=== PATIENT | male | born 1940 | race Caucasian/White ===

== ENCOUNTER 2022-10-23 19:25 | Inpatient (IN) | payer MEDICARE, MEDICAID, SELFPAY ==
--- NOTE | ~2022-10-23 | XR_ITS ---
EXAMINATION: XR CHEST CLINICAL INFORMATION: Decreased left-sided breath sounds. COMPARISON: None available. TECHNIQUE: Frontal view of the chest was obtained. FINDINGS: Left-sided pacer with leads projecting over the right atrium and right ventricle. No focal airspace opacities, pleural effusion or pneumothorax. No significant cardiomediastinal contour abnormality. No acute osseous findings. The visualized upper abdomen is within normal limits. XR/XR chest 1V IMPRESSION: No acute cardiopulmonary findings.
--- NOTE | ~2022-10-23 | US_ITS ---
EXAMINATION: US VENOUS ULTRASOUND WITH DOPPLER LOWER EXTREMITY, BILATERAL CLINICAL INFORMATION: Pulmonary embolus. Evaluate for deep venous thrombosis COMPARISON: None available. TECHNIQUE: Ultrasound of the deep veins is performed from the hip to the calf with compression sonography and color and pulse Doppler assessment. Spectral analysis with color-flow imaging is performed. FINDINGS: RIGHT: There is normal venous compression and respiratory variation and augmented flow. The visualized common femoral vein, superficial femoral vein, profunda femoral vein, popliteal vein, and the trifurcation region shows no evidence of deep venous thrombosis. There is no significant popliteal fossa cyst. LEFT: There is normal venous compression and respiratory variation and augmented flow. The visualized common femoral vein, superficial femoral vein, profunda femoral vein, popliteal vein, and the trifurcation region shows no evidence of deep venous thrombosis. There is no significant popliteal fossa cyst. The peroneal veins of the left calf were unable to be visualized. If the patient's symptoms persist, followup ultrasound in 5 days 7 days might be of value to exclude proximal propagation from a non-visualized calf vein. US/US venous duplex LE BI IMPRESSION: No DVT demonstrated in the bilateral lower extremity.
--- NOTE | ~2022-10-23 | CT_ITS ---
EXAMINATION: CT HEAD WITHOUT CONTRAST CLINICAL INFORMATION: Encephalopathy. COMPARISON: None available. TECHNIQUE: Contiguous axial imaging was performed from the skull base to vertex without intravenous administration of contrast. This CT examination was performed using dose optimization techniques as appropriate, variously including the following: *Automated exposure control *Adjustment of mA and/or kV according to patient size (this includes techniques or standardized protocols for targeted exams where dose is matched to indication/reason for exam; i.e. extremities or head) *Use of iterative reconstruction technique DLP: 661 mGy-cm FINDINGS: No intracranial hemorrhage, extra-axial surface collection, focal mass effect or midline shift. Moderate parenchymal volume loss with commensurate prominence of ventricles and sulci; no hydrocephalus. Atherosclerotic calcification of vertebral and carotid arteries. Scattered, patchy foci of hypoattenuation within supratentorial white matter compatible with sequela of chronic microangiopathy. There is a small area of chronic encephalomalacia within the right frontal lobe. Otherwise, the gordon-white matter differentiation is maintained. No evidence of an acute major vascular territory infarction. No acute abnormalities within the posterior fossa. The cerebellar tonsils are in normal position. There is likely chronic opacification of a right mastoid air cell. Otherwise, the mastoid air cells are well aerated. Mild mucosal thickening of the left maxillary sinus. No air-fluid levels within the paranasal sinuses. The visualized orbits and temporomandibular joints are intact. There is calcium deposition (likely calcium pyrophosphate dihydrate crystal deposition) along the transverse ligament posterior to the dens. CT/CT head/brain wo IV con IMPRESSION: * No evidence of mass, intracranial hemorrhage or other acute intracranial pathology. 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
--- NOTE | ~2022-10-23 | CT_ITS ---
EXAMINATION: CT ANGIOGRAM OF THE CHEST WITH AND WITHOUT CONTRAST (CT PULMONARY ANGIOGRAM FOR PE) CLINICAL INFORMATION: Hypoxia, syncope. COMPARISON: None available. TECHNIQUE: Prior to contrast administration, noncontrast localization images were obtained. Subsequently, multidetector volumetric imaging was performed from the thoracic inlet to below the diaphragms following the administration of 65 mL Omnipaque 350 intravenous contrast. No contrast reaction reported Sagittal, coronal, and MIP oblique sagittal reformatted images were obtained on the CT workstation, uploaded to PACS, and reviewed. This CT examination was performed using dose optimization techniques as appropriate, variously including the following: *Automated exposure control *Adjustment of mA and/or kV according to patient size (this includes techniques or standardized protocols for targeted exams where dose is matched to indication/reason for exam; i.e. extremities or head) *Use of iterative reconstruction technique Total exam dose-length product 498 mGy-cm FINDINGS: QUALITY OF STUDY/CONTRAST BOLUS: Satisfactory. PULMONARY ARTERIES: Evaluation is somewhat limited due to motion. No central pulmonary emboli. A few very small filling defects in segmental branches of the lower lobes, for instance in the right lung base on image 306 series 7 and left lung base image 258 series 7 could represent pulmonary emboli versus artifacts in the setting of motion. THORACIC AORTA: No aneurysm. LUNG: Platelike opacities in the left upper lobe anterior to the major fissure favoring to represent subsegmental atelectasis. Diffuse bronchial wall thickening with scattered intrabronchial mucous secretions. Background of emphysematous changes. No dense consolidation or significant groundglass disease. Central airways are patent. Evaluation of pulmonary nodules is limited due to respiratory motion. No discrete pulmonary mass. PLEURA: No pleural effusion or pneumothorax. MEDIASTINUM: Normal heart size. No pericardial effusion. No hilar or mediastinal lymphadenopathy. No evidence of septal bowing or right heart strain. CORONARY ARTERY CALCIFICATION: Coronary artery calcifications are noted. Left-sided pacer leads terminate at the level of the right atrium and right ventricle. CHEST WALL/AXILLA: No axillary or internal mammary lymphadenopathy. OSSEOUS STRUCTURES: No acute or suspicious osseous abnormality. UPPER ABDOMEN: Nonspecific periportal and peripancreatic lymphadenopathy, for instance a 1 cm short axis lymph node on image 49 series 5. Reflux of contrast into the hepatic veins suggest elevated right heart pressures. CT/CT angio chest PE protocol IMPRESSION: 1. Evaluation is somewhat limited due to motion. No central pulmonary emboli. There are a few very small filling defects in segmental branches of the lower lobes which could represent pulmonary emboli versus artifacts in the setting of motion. 2. Some degree of reflux of contrast into the hepatic veins is noted that could indicate forceful injection versus increased right-sided heart pressures. 3. Diffuse bronchial wall thickening with scattered intrabronchial mucous secretions suggesting small airways disease. 4. Background of emphysematous changes. 5. Nonspecific periportal and peripancreatic lymphadenopathy. If the patient has high risk factors for malignancy, a short-term follow-up CT abdomen could be obtained for reevaluation. VTE: indeterminate This critical result was discussed with Dr. Lemos at 10/23/2022 11:38 PM and it was ascertained that the content and urgency of the report was understood at the time of direct communication.
--- NOTE | 2022-10-23 19:35 | ECG_ITS ---
Test Reason : weakness Blood Pressure : / mmHG Vent. Rate : 085 BPM Atrial Rate : 085 BPM P-R Int : 000 ms QRS Dur : 166 ms QT Int : 440 ms P-R-T Axes : 044 066 094 degrees QTc Int : 523 ms Possible Normal sinus rhythm Ventricular-paced rhythm Abnormal ECG No previous ECGs available Referred By: Javy Ferrari Electronically Signed By:MAGUI OZUNA MD
[2022-10-23 19:42] VITALS: BP 118/62; PULSE 94; O2SAT 96; BMI 30.3
[2022-10-23 19:45] VITALS: BP 125/54; PULSE 85; RESP 24; TEMP 36.6; O2SAT 96
--- NOTE | 2022-10-23 19:45 | ED.GENADULT ---
HPI - General Adult General Chief complaint: Dyspnea Stated complaint: Dyspnea and unresponsiveness prior to ems Time Seen by Provider: 10/23/22 19:29 Source: EMS Mode of arrival: EMS Limitations: other (Confused) History of Present Illness HPI narrative: Patient comes to the emergency room via EMS from assisted living. Patient was found unresponsive in his bed, in respiratory failure. Patient did have pulse. According to the staff, they reported to EMS that the patient was severely cyanotic, profusely diaphoretic. They started him on 6 L nasal cannula, oxygen saturation improved to high 80s. When EMS arrived the patient was awake, confused, oxygen saturation in the low 80s. They took the oxygen off and the patient O2 dropped to low 70s. On arrival to the emergency room, patient is awake, states that he feels okay, denies chest pain or shortness of breath. Patient seems lethargic. Related Data Allergies Allergy/AdvReac Type Severity Reaction Status Date / Time Unable to Assess Allergy Unverified 10/23/22 19:35 Review of Systems Review of Systems: Denies chest pain or shortness of breath. Yes Unobtainable due to mental condition COUNT INCLUDES THE [facility] Past Medical History Medical History Alcohol dependence in remission Aortic valve stenosis Atrial fibrillation Chronic kidney disease CVA (cerebral vascular accident) Dementia Depression Hypertension Pulmonary hypertension Social History Social History Advance Directives: Yes Advance Directives on File: Yes Advance Directives Date on File: 10/23/22 Physical Exam ED Vital Signs: Vital Signs - 24 hr 10/23/22 19:45 10/23/22 21:56 10/23/22 23:37 Temperature 97.9 F 98.0 F 98.0 F Pulse Rate 85 62 68 Respiratory Rate 24 H 20 16 Blood Pressure 125/54 L 106/53 L 116/71 Pulse Oximetry 96 96 94 Oxygen Delivery Method Nasal Cannula Nasal Cannula Nasal Cannula Oxygen Flow Rate 5 5 5 BMI result Body Mass Index 30.3 Const Other: Appearance: Alert. Oriented X3. No acute distress. Somnolent, easily arousable Eyes: Pupils equal, round and reactive to light. ENT: Pharynx normal. Neck: Normal inspection. Neck supple. No lymph nodes noted. No crepitus CVS: Normal heart rate and rhythm. Pulses normal. Normal S1 and S2 Respiratory: Decreased breath sounds bilateral Abdomen: Soft and nontender. No rigidity. No distention. Skin: Skin warm and dry. Normal skin color. Normal skin turgor. Extremities: No lower extremity edema. No Lacerations. No Rash Neuro: No motor deficit. No sensory deficit. Moving all extremities. No slurred speech. CN 2 through 12 grossly intact Psych: calm, cooperative, normal affect Course Course Course Narrative: -all patient's labs and imaging pending. -the oxygen, 2 drops to the low 80s. Patient is now on 4 L saturating in the low 90s. -patient does not seem to have any history of asthma or COPD. Medications Administered Discontinued Medications Generic Name Dose Route Start Last Admin Trade Name Freq PRN Reason Stop Dose Admin Iohexol 100 ml 10/23/22 21:23 10/23/22 21:24 Iohexol 350 Mg/Ml 100 Ml Infus..Btl IV 10/23/22 21:24 65 ml ONCE ONE Administration Medical Decision Making Medical Decision Making [facility] Narrative: -patient's labs are unremarkable. D-dimer negative. -although patient's D-dimer is negative, I cannot account for why patient is hypoxic and has syncopal episode. We will go ahead and order a CTA scan to rule pulmonary embolus -CTA is unremarkable, possible defects in segmental branches of the lower lobes favors artifact. Given the patient's level of hypoxia and syncopal episode, we will go ahead and treat as a pulmonary embolism -Lovenox has been started -patient is on 5 L nasal cannula, without O2, oxygen saturation drops to the high 70s. 5 L, patient has been calm, comfortable. Differential Diagnosis Differential Diagnoses: The differential diagnosis associated with the presentation includes (Pneumonia, pneumothorax, pulmonary embolism) Admission/Observation Consideration of admission/observation: Escalation of care including admission/observation considered Consult Healthcare Provider Management of the patient was discussed with: Hospitalist Lab Data [facility] Lab Attestation statement: I reviewed the patient's lab results. 10/23/22 20:10 10/23/22 20:10 Labs: Lab Results 10/23/22 10/23/22 10/23/22 Range/Units 20:10 20:10 20:10 WBC 8.0 (4.8-10.8) X10*3/uL RBC 5.17 (4.60-5.80) X10*6/uL Hgb 14.5 (14.0-18.0) g/dl Hct 46.2 (42.0-52.0) % MCV 89.4 (80.0-98.0) fL MCH 28.0 (27.0-33.0) pg MCHC 31.4 (31.0-36.0) g/dl RDW 13.5 (11.0-16.0) % Plt Count 229 (160-400) X10*3/uL MPV 9.4 (9.4-12.4) fL Immature Gran % (Auto) 0.2 (0.0-0.4) % Neut % (Auto) 70.1 (45-73) % Lymph % (Auto) 15.7 L (20-40) % [place] % (Auto) 10.2 (2-11) % Eos % (Auto) 3.6 (0-4) % Baso % (Auto) 0.2 (0-2) % Lymph # (Auto) 1.3 (1.2-4.9) X10*3/uL [place] # (Auto) 0.8 (0.1-1.2) X10*3/uL Eos # (Auto) 0.3 (0.0-0.4) X10*3/uL Baso # (Auto) 0.0 (0.0-0.2) X10*3/uL Abs Immat Gran (auto) 0.02 (0.00-0.03) X10*3/uL Absolute Neuts (auto) 5.6 (2.0-8.3) x10*3/uL Absolute Nucleated RBC 0.000 (0.0-0.012) X10*3/uL Nucleated RBC % (auto) 0.0 (0.0-0.2) /100WBC PT (10.0-13.1) SEC INR (0.9-1.1) D-Dimer High Sensitivty NG/ML VBG pH (7.32-7.43) VBG pCO2 mmHg VBG pO2 mmHg VBG HCO3 (22-26) mmol/L VBG O2 Saturation % VBG Base Excess mmol/L Sodium 140 (135-145) mmol/L Potassium 3.8 (3.3-5.1) mmol/L Chloride 103 (96-108) mmol/L Carbon Dioxide 26 (22-29) mmol/L Anion Gap 15 (12-20) BUN 23 H (9-16) mg/dL Creatinine 0.83 (0.5-1.4) mg/dL Estim Creat Clear Calc 49.1 Estimated GFR > 60 Random Glucose 141 H (60-115) mg/dL Lactic Acid (0.5-2.0) mmol/L Calcium 9.1 (8.4-10.2) mg/dL Magnesium 2.2 (1.6-2.6) mg/dL Total Bilirubin 1.8 H (0.0-1.0) mg/dL Direct Bilirubin 0.4 (0.0-0.5) mg/dL AST 20 (5-37) U/L ALT 16 (0-40) U/L Alkaline Phosphatase 91 (39-117) U/L Troponin I High Sens 19.2 (<3.5-35.0) ng/L B-Natriuretic Peptide (<100) pg/mL Total Protein 6.8 (6.5-8.0) g/dL Albumin 3.6 (3.5-5.0) g/dL Lipase 16 (8-78) U/L COVID-19 (RACHEL) (Negative) COVID-19 Clin Com Influenza Type A (JUWAN) (Negative) Influenza Type B (JUWAN) (Negative) Influenza A & B Note 10/23/22 10/23/22 10/23/22 Range/Units 20:10 20:10 20:10 WBC (4.8-10.8) X10*3/uL RBC (4.60-5.80) X10*6/uL Hgb (14.0-18.0) g/dl Hct (42.0-52.0) % MCV (80.0-98.0) fL MCH (27.0-33.0) pg MCHC (31.0-36.0) g/dl RDW (11.0-16.0) % Plt Count (160-400) X10*3/uL MPV (9.4-12.4) fL Immature Gran % (Auto) (0.0-0.4) % Neut % (Auto) (45-73) % Lymph % (Auto) (20-40) % [place] % (Auto) (2-11) % Eos % (Auto) (0-4) % Baso % (Auto) (0-2) % Lymph # (Auto) (1.2-4.9) X10*3/uL [place] # (Auto) (0.1-1.2) X10*3/uL Eos # (Auto) (0.0-0.4) X10*3/uL Baso # (Auto) (0.0-0.2) X10*3/uL Abs Immat Gran (auto) (0.00-0.03) X10*3/uL Absolute Neuts (auto) (2.0-8.3) x10*3/uL Absolute Nucleated RBC (0.0-0.012) X10*3/uL Nucleated RBC % (auto) (0.0-0.2) /100WBC PT 17.0 H (10.0-13.1) SEC INR 1.5 H (0.9-1.1) D-Dimer High Sensitivty 161 NG/ML VBG pH (7.32-7.43) VBG pCO2 mmHg VBG pO2 mmHg VBG HCO3 (22-26) mmol/L VBG O2 Saturation % VBG Base Excess mmol/L Sodium (135-145) mmol/L Potassium (3.3-5.1) mmol/L Chloride (96-108) mmol/L Carbon Dioxide (22-29) mmol/L Anion Gap (12-20) BUN (9-16) mg/dL Creatinine (0.5-1.4) mg/dL Estim Creat Clear Calc Estimated GFR Random Glucose (60-115) mg/dL Lactic Acid 1.9 (0.5-2.0) mmol/L Calcium (8.4-10.2) mg/dL Magnesium (1.6-2.6) mg/dL Total Bilirubin (0.0-1.0) mg/dL Direct Bilirubin (0.0-0.5) mg/dL AST (5-37) U/L ALT (0-40) U/L Alkaline Phosphatase (39-117) U/L Troponin I High Sens (<3.5-35.0) ng/L B-Natriuretic Peptide 237 H (<100) pg/mL Total Protein (6.5-8.0) g/dL Albumin (3.5-5.0) g/dL Lipase (8-78) U/L COVID-19 (RACHEL) (Negative) COVID-19 Clin Com Influenza Type A (JUWAN) (Negative) Influenza Type B (JUWAN) (Negative) Influenza A & B Note 10/23/22 10/23/22 10/23/22 Range/Units 20:14 20:27 20:27 WBC (4.8-10.8) X10*3/uL RBC (4.60-5.80) X10*6/uL Hgb (14.0-18.0) g/dl Hct (42.0-52.0) % MCV (80.0-98.0) fL MCH (27.0-33.0) pg MCHC (31.0-36.0) g/dl RDW (11.0-16.0) % Plt Count (160-400) X10*3/uL MPV (9.4-12.4) fL Immature Gran % (Auto) (0.0-0.4) % Neut % (Auto) (45-73) % Lymph % (Auto) (20-40) % [place] % (Auto) (2-11) % Eos % (Auto) (0-4) % Baso % (Auto) (0-2) % Lymph # (Auto) (1.2-4.9) X10*3/uL [place] # (Auto) (0.1-1.2) X10*3/uL Eos # (Auto) (0.0-0.4) X10*3/uL Baso # (Auto) (0.0-0.2) X10*3/uL Abs Immat Gran (auto) (0.00-0.03) X10*3/uL Absolute Neuts (auto) (2.0-8.3) x10*3/uL Absolute Nucleated RBC (0.0-0.012) X10*3/uL Nucleated RBC % (auto) (0.0-0.2) /100WBC PT (10.0-13.1) SEC INR (0.9-1.1) D-Dimer High Sensitivty NG/ML VBG pH 7.36 (7.32-7.43) VBG pCO2 55 mmHg VBG pO2 52 mmHg VBG HCO3 32 H (22-26) mmol/L VBG O2 Saturation 76.0 % VBG Base Excess 4.9 mmol/L Sodium (135-145) mmol/L Potassium (3.3-5.1) mmol/L Chloride (96-108) mmol/L Carbon Dioxide (22-29) mmol/L Anion Gap (12-20) BUN (9-16) mg/dL Creatinine (0.5-1.4) mg/dL Estim Creat Clear Calc Estimated GFR Random Glucose (60-115) mg/dL Lactic Acid (0.5-2.0) mmol/L Calcium (8.4-10.2) mg/dL Magnesium (1.6-2.6) mg/dL Total Bilirubin (0.0-1.0) mg/dL Direct Bilirubin (0.0-0.5) mg/dL AST (5-37) U/L ALT (0-40) U/L Alkaline Phosphatase (39-117) U/L Troponin I High Sens (<3.5-35.0) ng/L B-Natriuretic Peptide (<100) pg/mL Total Protein (6.5-8.0) g/dL Albumin (3.5-5.0) g/dL Lipase (8-78) U/L COVID-19 (RACHEL) Negative (Negative) COVID-19 Clin Com See Note Influenza Type A (JUWAN) Negative (Negative) Influenza Type B (JUWAN) Negative (Negative) Influenza A & B Note See Note Independent Interpretation I performed an independent interpretation of an: CT Scan (Interpretation of CTA scan of the chest: No obvious pulmonary embolism, questionable subsegmental PE?) Radiology Impression Discussion of test interpretation with radiology: I have reviewed the radiologist's reading. Radiologist Impression: MPRESSION: 1.? Evaluation is somewhat limited due to motion. No central pulmonary emboli. There are a few very small filling defects in segmental branches of the lower lobes which could represent pulmonary emboli versus artifacts in the setting of motion. 2.? Some degree of reflux of contrast into the hepatic veins is noted that could indicate forceful injection versus increased right-sided heart pressures. 3.? Diffuse bronchial wall thickening with scattered intrabronchial mucous secretions suggesting small airways disease. 4.? Background of emphysematous changes. 5.? Nonspecific periportal and peripancreatic lymphadenopathy. If the patient has high risk factors for malignancy, a short-term follow-up CT abdomen could be obtained for reevaluation. ? VTE: indeterminate Critical Care Time Critical Care Time Critical Care Time: Yes Total Critical Care Time: 75 Attestation: I have personally provided critical care time. Time includes review of lab data, radiology results, discussion with consultants, and monitoring for potential decompensation. Intervention performed as documented. Discharge Plan Discharge Clinical Impression: Pulmonary embolism, Syncope Patient Disposition: Admitted As Inpatient
[2022-10-23 20:21] LABS: VBG Base Excess 4.9 mmol/L; VBG HCO3 32 mmol/L (22-26); VBG pCO2 55 mmHg; VBG pH 7.36 (7.32-7.43); VBG pO2 52 mmHg
[2022-10-23 20:22] LABS: MANUAL DIFF FLAG NO
[2022-10-23 20:23] LABS: Venous Blood Gas Refer to POC result
[2022-10-23 20:30] LABS: Basophils Percent Auto 0.2 % (0-2); Eosinophils Absolute Auto 0.3 X10*3/uL (0.0-0.4); Eosinophils Percent Auto 3.6 % (0-4); Hematocrit 46.2 % (42.0-52.0); Hemoglobin 14.5 g/dl (14.0-18.0); Imm Gran Abs Auto 0.02 X10*3/uL (0.00-0.03); Imm Gran Pct Auto 0.2 % (0.0-0.4); Lymphocytes Absolute Auto 1.3 X10*3/uL (1.2-4.9); Lymphocytes Percent Auto 15.7 % (20-40); Mean Corpuscular HGB Conc 31.4 g/dl (31.0-36.0); Mean Corpuscular Volume 89.4 fL (80.0-98.0); Mean Platelet Volume 9.4 fL (9.4-12.4); Monocytes Absolute Auto 0.8 X10*3/uL (0.1-1.2); Monocytes Percent Auto 10.2 % (2-11); Neutrophils Absolute Auto 5.6 x10*3/uL (2.0-8.3); Neutrophils Percent Auto 70.1 % (45-73); Platelet Count 229 X10*3/uL (160-400); Red Blood Count 5.17 X10*6/uL (4.60-5.80); Red Cell Distribution Width 13.5 % (11.0-16.0)
[2022-10-23 20:31] LABS: INTERNATIONAL NORM RATIO 1.5 (0.9-1.1)
[2022-10-23 20:33] LABS: D Dimer High Sensitivity 161 NG/ML; Lactic Acid 1.9 mmol/L (0.5-2.0)
[2022-10-23 20:41] LABS: Alanine Aminotransferase 16 U/L (0-40); Albumin Level 3.6 g/dL (3.5-5.0); Alkaline Phosphatase 91 U/L (39-117); Anion Gap 15 (12-20); Aspartate Amino Transferase 20 U/L (5-37); Bilirubin Direct 0.4 mg/dL (0.0-0.5); Bilirubin Total 1.8 mg/dL (0.0-1.0); Blood Urea Nitrogen 23 mg/dL (9-16); Calcium 9.1 mg/dL (8.4-10.2); Carbon Dioxide 26 mmol/L (22-29); Chloride 103 mmol/L (96-108); Creatinine Clr Calc Pharmacy 49.1; Estimated Glomerular Filt Rate > 60; Glucose Random 141 mg/dL (60-115); Lipase 16 U/L (8-78); Magnesium 2.2 mg/dL (1.6-2.6); Potassium 3.8 mmol/L (3.3-5.1); Sodium 140 mmol/L (135-145); Total Protein 6.8 g/dL (6.5-8.0)
[2022-10-23 20:43] LABS: B Type Natriuretic Peptide 237 pg/mL (<100)
[2022-10-23 20:45] LABS: Troponin-I High Sensitivity 19.2 ng/L (<3.5-35.0)
[2022-10-23 21:01] LABS: COVID-19 Test Negative (Negative); IDNOW Serial# 08D9AD1C; IDNOW Serial# BCCEAD1C; Influenza A Negative (Negative); Influenza B2 Negative (Negative)
[2022-10-23] MEDS: iohexoL 350 MG/ML 100 ML INFUS..BTL IV (21:24)
[2022-10-23 21:56] VITALS: BP 106/53; PULSE 62; RESP 20; TEMP 36.7; O2SAT 96
[2022-10-23 23:37] VITALS: BP 116/71; PULSE 68; RESP 16; TEMP 36.7; O2SAT 94
--- NOTE | 2022-10-23 23:40 | MHC.EDTECH ---
i took over this assignment vitals were taken and a [place] cath was applied
--- NOTE | 2022-10-23 23:43 | PM.IMHP ---
History of Present Illness Date of Service: 10/23/22 Chief Complaint: unresponsive, hypoxic patient is lethargic , arousable, but somnolent and unable to get much history, therefore history is obtained mostly from EMR this is an 82-year-old male with past medical history of aortic valve stenosis, AFib, CVA, depression, pulmonary hypertension, who was a resident of longterm, was sent to the ED after being found unresponsive. Patient apparently had a pulse. But was found to be severely cyanotic, profusely diaphoretic, with an O2 sat on arrival of EMS in the 80s. According to EMS report, patient was on 6 L of nasal cannula satting in the high 80s, when oxygen was removed from the patient he was found to be satting in the 70s. On arrival to the ED patient hemodynamically stable, and denies any chest pain to the ED, otherwise no other review of system can be obtained Vitals on arrival stable, shows respiratory rate of 24, Satting 96% on 5 L of oxygen WBC count of eight, INR of 1.5, BNP of 237, troponin of 19, COVID-19, influenza, negative chest CT angiogram shows no central pulmonary emboli, but small filling defects in segmental branches concerning for segmental emboli given significant hypoxia, patient will be admitted for further management Review of Systems Review of Systems: Yes Unobtainable due to mental condition and Unobtainable due to mental status [facility] Medical History Alcohol dependence in remission Aortic valve stenosis Atrial fibrillation Chronic kidney disease CVA (cerebral vascular accident) Dementia Depression Hypertension Pulmonary hypertension Social History Advance Directives: Yes Advance Directives on File: Yes Advance Directives Date on File: 10/23/22 Meds Allergies Allergy/AdvReac Type Severity Reaction Status Date / Time Unable to Assess Allergy Unverified 10/23/22 19:35 Home Medications Medication Instructions Recorded Confirmed Last Taken Type acetaminophen 325 mg tablet 650 mg PO Q6H PRN Abdominal 10/23/22 10/23/22 Unknown History Discomfort apixaban 5 mg tablet (Eliquis) 5 mg PO BID 10/23/22 10/23/22 Unknown History atorvastatin 40 mg tablet 40 mg PO DAILY 10/23/22 10/23/22 Unknown History bisacodyl 10 mg rectal suppository 10 mg MO 10/23/22 Unknown History famotidine 20 mg tablet 20 mg PO DAILY 10/23/22 10/23/22 Unknown History furosemide 20 mg tablet 20 mg PO BID 10/23/22 10/23/22 Unknown History guaifenesin 100 mg/5 mL oral syrup 200 mg PO Q4H PRN Cough 10/23/22 10/23/22 Unknown History loperamide 2 mg capsule 2 mg PO Q4H PRN Allergic Reaction 10/23/22 10/23/22 Unknown History magnesium hydroxide 400 mg/5 mL 400 PO NEEDED 10/23/22 Unknown History oral suspension (Milk of Magnesia) metoprolol tartrate 50 mg tablet BID 10/23/22 Unknown History sacubitril 24 mg-valsartan 26 mg 1 tab PO BID 10/23/22 10/23/22 Unknown History tablet (Entresto) simethicone 80 mg chewable tablet 80 mg 10/23/22 Unknown History Physical Exam Vital Signs and Narrative: Vital Signs: Last Vital Signs Temp 98.0 F 10/23/22 23:37 Pulse 68 10/23/22 23:37 Resp 16 10/23/22 23:37 BP 116/71 10/23/22 23:37 Pulse Ox 94 10/23/22 23:37 O2 Del Method Nasal Cannula 10/23/22 23:37 O2 Flow Rate 5 10/23/22 23:37 BMI result Body Mass Index 30.3 Const: Other: sleeping, lethargic, arousable, unable to assess orientation General: no acute distress Eyes: General: appearance normal, both eyes and all related structures Pupils: Equal, round and reactive pupils present Resp: Effort & Inspection: normal respiratory effort Auscultation: clear to auscultation bilaterally Cardio: Rate: regular rate Rhythm: regular rhythm GI: Palpation (GI): Soft to palpation Auscultation: normal bowel sounds Skin: General skin exam: no rashes or lesions noted Neuro: Cranial nerves: Yes Equal, round and reactive pupils present Extrem: General: Yes normal to inspection and Yes no pedal edema Results Labs 10/23/22 20:10 10/23/22 20:10 Labs: Laboratory Results - last 24 hr 10/23/22 10/23/22 10/23/22 20:10 20:10 20:10 MCV 89.4 MCH 28.0 MCHC 31.4 RDW 13.5 Plt Count 229 MPV 9.4 Immature Gran % (Auto) 0.2 Neut % (Auto) 70.1 Lymph % (Auto) 15.7 L [place] % (Auto) 10.2 Eos % (Auto) 3.6 Baso % (Auto) 0.2 Lymph # (Auto) 1.3 [place] # (Auto) 0.8 Eos # (Auto) 0.3 Baso # (Auto) 0.0 Abs Immat Gran (auto) 0.02 Absolute Neuts (auto) 5.6 Absolute Nucleated RBC 0.000 Nucleated RBC % (auto) 0.0 PT INR D-Dimer High Sensitivty VBG pH VBG pCO2 VBG pO2 VBG HCO3 VBG O2 Saturation VBG Base Excess Anion Gap 15 Estim Creat Clear Calc 49.1 Estimated GFR > 60 Random Glucose 141 H Lactic Acid Calcium 9.1 Magnesium 2.2 Total Bilirubin 1.8 H Direct Bilirubin 0.4 AST 20 ALT 16 Alkaline Phosphatase 91 Troponin I High Sens 19.2 B-Natriuretic Peptide Total Protein 6.8 Albumin 3.6 Lipase 16 COVID-19 (RACHEL) COVID-19 Clin Com Influenza Type A (JUWAN) Influenza Type B (JUWAN) Influenza A & B Note 10/23/22 10/23/22 10/23/22 20:10 20:10 20:10 MCV MCH MCHC RDW Plt Count MPV Immature Gran % (Auto) Neut % (Auto) Lymph % (Auto) [place] % (Auto) Eos % (Auto) Baso % (Auto) Lymph # (Auto) [place] # (Auto) Eos # (Auto) Baso # (Auto) Abs Immat Gran (auto) Absolute Neuts (auto) Absolute Nucleated RBC Nucleated RBC % (auto) PT 17.0 H INR 1.5 H D-Dimer High Sensitivty 161 VBG pH VBG pCO2 VBG pO2 VBG HCO3 VBG O2 Saturation VBG Base Excess Anion Gap Estim Creat Clear Calc Estimated GFR Random Glucose Lactic Acid 1.9 Calcium Magnesium Total Bilirubin Direct Bilirubin AST ALT Alkaline Phosphatase Troponin I High Sens B-Natriuretic Peptide 237 H Total Protein Albumin Lipase COVID-19 (RACHEL) COVID-19 Clin Com Influenza Type A (JUWAN) Influenza Type B (JUWAN) Influenza A & B Note 10/23/22 10/23/22 10/23/22 20:14 20:27 20:27 MCV MCH MCHC RDW Plt Count MPV Immature Gran % (Auto) Neut % (Auto) Lymph % (Auto) [place] % (Auto) Eos % (Auto) Baso % (Auto) Lymph # (Auto) [place] # (Auto) Eos # (Auto) Baso # (Auto) Abs Immat Gran (auto) Absolute Neuts (auto) Absolute Nucleated RBC Nucleated RBC % (auto) PT INR D-Dimer High Sensitivty VBG pH 7.36 VBG pCO2 55 VBG pO2 52 VBG HCO3 32 H VBG O2 Saturation 76.0 VBG Base Excess 4.9 Anion Gap Estim Creat Clear Calc Estimated GFR Random Glucose Lactic Acid Calcium Magnesium Total Bilirubin Direct Bilirubin AST ALT Alkaline Phosphatase Troponin I High Sens B-Natriuretic Peptide Total Protein Albumin Lipase COVID-19 (RACHEL) Negative COVID-19 Clin Com See Note Influenza Type A (JUWAN) Negative Influenza Type B (JUWAN) Negative Influenza A & B Note See Note Imaging Radiologist's Impressions: Impressions Chest X-Ray 10/23/22 19:54 IMPRESSION: No acute cardiopulmonary findings. Chest CTA 10/23/22 21:46 IMPRESSION: 1. Evaluation is somewhat limited due to motion. No central pulmonary emboli. There are a few very small filling defects in segmental branches of the lower lobes which could represent pulmonary emboli versus artifacts in the setting of motion. 2. Some degree of reflux of contrast into the hepatic veins is noted that could indicate forceful injection versus increased right-sided heart pressures. 3. Diffuse bronchial wall thickening with scattered intrabronchial mucous secretions suggesting small airways disease. 4. Background of emphysematous changes. 5. Nonspecific periportal and peripancreatic lymphadenopathy. If the patient has high risk factors for malignancy, a short-term follow-up CT abdomen could be obtained for reevaluation. VTE: indeterminate This critical result was discussed with Dr. Lemos at 10/23/2022 11:38 PM and it was ascertained that the content and urgency of the report was understood at the time of direct communication. Assessment and Plan (1) Pulmonary embolism: Status: Acute (2) Unresponsiveness: Status: Acute (3) Acute respiratory failure with hypoxia: Status: Acute Plan 82-year-old male who presents to the hospital from longterm after being found unresponsive and cyanotic for an unknown period of time # acute hypoxic respiratory failure - likely secondary to PE, pneumonia less likely, COPD less likely - patient on Eliquis at home - given significant hypoxia, patient was started on subcu weight based Lovenox b.i.d. - continue oxygen supplement as required - monitor respiratory status # acute PE - failed Eliquis? - patient was on Eliquis per home medication list history of AFib, - given significant hypoxia patient started on Lovenox weight based - will obtain DVT studies - if positive consider vascular surgery Marizol consult for possible IVC filter? - evidence of possible right heart strain, will obtain echocardiogram - monitor respiratory status # unresponsiveness/encephalopathy - likely secondary to hypoxia - will obtain head CT # AFib -patient was on Eliquis, but has not developed PE, will start him on Lovenox weight based - continue metoprolol # history of CVA - continue statin DVT prophylaxis: Lovenox Time Spent With Patient Time: Total time managing care of this patient today ____ minutes. Quality Stroke Does the patient have a stroke diagnosis?: No VTE Prior VTE?: No VTE Risk Level:: Medical - moderate - high VTE Device Contraindication: Treatment Not Indicated VTE Drug Contraindication: N/A - Med Ordered
[2022-10-24] MEDS: Enoxaparin Sodium 60 MG/0.6 ML SYRINGE SUBCUT ×3 (00:48→23:55)
[2022-10-24] MEDS: 0.9 % Sodium Chloride Flush 3 ML SYRINGE IVFLUSH ×4 (00:48→23:56)
[2022-10-24 00:49] LABS: Partial Thromboplastin Time 27.3 SEC (26.0-36.4)
[2022-10-24 01:58] VITALS: BP 97/58; PULSE 79; RESP 22; TEMP 36.6; O2SAT 96
[2022-10-24 06:54] LABS: Alanine Aminotransferase 13 U/L (0-40); Albumin Level 3.5 g/dL (3.5-5.0); Alkaline Phosphatase 89 U/L (39-117); Anion Gap 13 (12-20); Aspartate Amino Transferase 18 U/L (5-37); Bilirubin Total 1.6 mg/dL (0.0-1.0); Blood Urea Nitrogen 20 mg/dL (9-16); Calcium 8.9 mg/dL (8.4-10.2); Carbon Dioxide 28 mmol/L (22-29); Chloride 106 mmol/L (96-108); Creatinine Clr Calc Pharmacy 50.3; Estimated Glomerular Filt Rate > 60; Glucose Random 105 mg/dL (60-115); Potassium 4.2 mmol/L (3.3-5.1); Sodium 143 mmol/L (135-145); Total Protein 6.5 g/dL (6.5-8.0)
--- NOTE | 2022-10-24 07:00 | CA_ITS ---
Transthoracic Echocardiogram Patient (Last, First, Middle): David Craft, Gender: Male Date of : 1940 Age: 82 Procedure Date: 10/24/2022 Procedure Type: Transthoracic Echocardiogram [place] [facility] [place]: 149.86 cm Weight: 86.18 kg BSA: 1.80 m2 Heart Rate: bpm BP: 118 / 51 mmHg Abe Teacher: Referring MD: Rizwana Purvis MD Puppy Walker: Misha Dorado MD Symptoms: PE Study Quality: Technically Difficult ECG Rhythm: Atrial Fibrillation Conclusions: - 1. Technically limited study despite use of contrast agent 2. Moderate to severe LV systolic dysfunction with LVEF of 30 35% with mild LVH 3. Aortic valve not well visualized, presence of aortic stenosis all the severity is difficult to assess given limited quality of study 4. Normal RV systolic pressure Findings Procedure Information Contrast agent, definity, is being given per protocol without apparent complications. Left Ventricle The left ventricle was not well visualized. Normal left ventricular cavity size. There is mildly increased left ventricular wall thickness. The left ventricular systolic function is moderate to severely decreased. The visually estimated ejection fraction is between 30-35%. Diastolic function is indeterminate on the basis of available data. Right Ventricle Normal right ventricular cavity size. Atria The left atrium was not well visualized. Interatrial shunt cannot be excluded. The right atrium was not well visualized. Aortic Valve The aortic valve was not well visualized. There is no aortic valve regurgitation. Severity of aortic stenosis is difficult to assess on this study Mitral Valve The mitral valve was not well visualized. There is no mitral valve regurgitation. There is no mitral valve stenosis. Pulmonic Valve The pulmonic valve was not well visualized. Tricuspid Valve The tricuspid valve was not well visualized. The right ventricular systolic pressure is normal. The right ventricular systolic pressure is 17 mmHg. There is no evidence of pulmonary hypertension. Great Vessels The aorta was not well visualized. The pulmonary artery was not well visualized. Venous The inferior vena cava is normal in size and collapses greater than 50% with inspiration. Pericardium/Pleural The pericardium was not well visualized. Prior Study Comparison No prior study available for comparison. Measurements 2D Linear Measurements IVSd: 1.35 0.6-0.9/0.6-1.0 cm LVIDd: 4.78 3.9-5.3/4.2-5.9 cm LVIDd Index: 2.66 2.4-3.2/2.2-3.1 cm/m2 LVIDs: 2.98 2.0-3.6 cm LVPWd: 1.33 0.7-1.1 cm LA Diam: 3.90 2.7-3.8/3.0-4.0 cm LAIDs Index: 2.17 1.5-2.3 cm/m2 LV Mass: 318.18 67-162/88-224 g LV Mass Index: 176.77 43-95/49-115 g/m2 LVOT Diam: 2.00 3.0+(-)1.3 cm 2D Systolic Function EF 4C: 40.40 >55% EF 2C: 24.60 >55% EF BiP: 33.60 >55% Mitral Valve MV Pk E: 0.98 MV Decel Time: 130.00 E'Lateral: 4.24 E'Medial: 7.51 E/E' Med: 13.00 E/E' Lat: 23.00 PHT: 38.00 MVA PHT: 5.79 Decel Haakon: 7.52 Aortic Valve AoV Pk Jorge: 2.04 AoV Mn Jorge: 1.47 AoV VTI: 0.42 AoV Pk Grad: 17.00 Aov Mn Grad: 11.00 MAINOR Cont.VTI: 1.02 LVOT LVOT Pk Jorge: 0.65 LVOT Mn Jorge: 0.45 LVOT VTI: 0.14 LVOT Pk Grad: 2.00 LVOT Mn Grad: 1.00 LVOT Diam: 2.00 LVOT Area: 3.14 Diastolic Function MV Pk E: 0.98 E'Medial: 7.51 E/E' Med: 13.00 E' Laterial: 4.24 E/E' Lat: 23.00 Tricuspid Valve TR Pk Jorge: 2.09 TR Pk Grad: 17.00 RVSP: 17.00 Great Vessels Aorta Sinus of Valsalva: 3.10 2.0-3.5 cm Pulmonary Valve PV Pk Jorge: 1.29 Peak PV Grad: 7.00 Updated in Other Vendor System with Status of Final Misha Dorado MD electronically signed on 10/24/2022 1:27:49 PM with status of Final
[2022-10-24 07:03] VITALS: BP 118/51; PULSE 74; RESP 20; O2SAT 94
--- NOTE | 2022-10-24 10:44 | PHA.MEDREC ---
Pharmacy Consult ? Medication Reconciliation Medication list obtain from Facility Pharmacy has completed the medication reconciliation.
--- NOTE | 2022-10-24 10:48 | HO.PM.IMPN ---
Subjective Subjective Date of Service: 10/24/22 Interval History: f/u on acute hypoxic respiratory failure d/t PE Inteval history: Still hypxix, no confusion Physical Exam Vital Signs: Vital Signs: Last Vital Signs Temp 97.9 F 10/24/22 01:58 Pulse 74 10/24/22 07:03 Resp 20 10/24/22 07:03 BP 118/51 L 10/24/22 07:03 Pulse Ox 94 10/24/22 07:03 O2 Del Method Nasal Cannula 10/24/22 07:03 O2 Flow Rate 7 10/24/22 07:03 BMI result Body Mass Index 30.3 Const: Other: General: AO X 3, no acute distress Resp: CTA bilateral CVS: S1,S2,RRR GI: +BS, NT, no distention Skin: No rash Neuro: motor grossly intact Psych: appropriate affect Objective Data Active Medications Acetaminophen (Acetaminophen 325 Mg Tablet) 650 mg PO Q6H PRN PRN Reason: Pain, Mild (Pain Scale 1-3) Docusate Sodium (Docusate Sodium 100 Mg Capsule) 100 mg PO DAILY PRN PRN Reason: Constipation Ondansetron HCl (Ondansetron Hcl 4 Mg/2 Ml Vial) 4 mg IVPUSH Q8H PRN PRN Reason: Nausea and Vomiting Sodium Chloride (0.9 % Sodium Chloride Flush 3 Ml Syringe) [facility] Last Admin: 10/24/22 07:49 Dose: 3 ml Documented By: JESUS ALBERTO Labs 10/23/22 20:10 10/24/22 06:12 Labs: Laboratory Results - last 24 hr 10/23/22 10/23/22 10/23/22 20:10 20:10 20:10 MCV 89.4 MCH 28.0 MCHC 31.4 RDW 13.5 Plt Count 229 MPV 9.4 Immature Gran % (Auto) 0.2 Neut % (Auto) 70.1 Lymph % (Auto) 15.7 L [place] % (Auto) 10.2 Eos % (Auto) 3.6 Baso % (Auto) 0.2 Lymph # (Auto) 1.3 [place] # (Auto) 0.8 Eos # (Auto) 0.3 Baso # (Auto) 0.0 Abs Immat Gran (auto) 0.02 Absolute Neuts (auto) 5.6 Absolute Nucleated RBC 0.000 Nucleated RBC % (auto) 0.0 PT INR APTT D-Dimer High Sensitivty VBG pH VBG pCO2 VBG pO2 VBG HCO3 VBG O2 Saturation VBG Base Excess Anion Gap 15 Estim Creat Clear Calc 49.1 Estimated GFR > 60 Random Glucose 141 H Lactic Acid Calcium 9.1 Magnesium 2.2 Total Bilirubin 1.8 H Direct Bilirubin 0.4 AST 20 ALT 16 Alkaline Phosphatase 91 Troponin I High Sens 19.2 B-Natriuretic Peptide Total Protein 6.8 Albumin 3.6 Lipase 16 COVID-19 (RACHEL) COVID-19 Clin Com Influenza Type A (JUWAN) Influenza Type B (JUWAN) Influenza A & B Note 10/23/22 10/23/22 10/23/22 20:10 20:10 20:10 MCV MCH MCHC RDW Plt Count MPV Immature Gran % (Auto) Neut % (Auto) Lymph % (Auto) [place] % (Auto) Eos % (Auto) Baso % (Auto) Lymph # (Auto) [place] # (Auto) Eos # (Auto) Baso # (Auto) Abs Immat Gran (auto) Absolute Neuts (auto) Absolute Nucleated RBC Nucleated RBC % (auto) PT 17.0 H INR 1.5 H APTT D-Dimer High Sensitivty 161 VBG pH VBG pCO2 VBG pO2 VBG HCO3 VBG O2 Saturation VBG Base Excess Anion Gap Estim Creat Clear Calc Estimated GFR Random Glucose Lactic Acid 1.9 Calcium Magnesium Total Bilirubin Direct Bilirubin AST ALT Alkaline Phosphatase Troponin I High Sens B-Natriuretic Peptide 237 H Total Protein Albumin Lipase COVID-19 (RACHEL) COVID-19 Clin Com Influenza Type A (JUWAN) Influenza Type B (JUWAN) Influenza A & B Note 10/23/22 10/23/22 10/23/22 20:14 20:27 20:27 MCV MCH MCHC RDW Plt Count MPV Immature Gran % (Auto) Neut % (Auto) Lymph % (Auto) [place] % (Auto) Eos % (Auto) Baso % (Auto) Lymph # (Auto) [place] # (Auto) Eos # (Auto) Baso # (Auto) Abs Immat Gran (auto) Absolute Neuts (auto) Absolute Nucleated RBC Nucleated RBC % (auto) PT INR APTT D-Dimer High Sensitivty VBG pH 7.36 VBG pCO2 55 VBG pO2 52 VBG HCO3 32 H VBG O2 Saturation 76.0 VBG Base Excess 4.9 Anion Gap Estim Creat Clear Calc Estimated GFR Random Glucose Lactic Acid Calcium Magnesium Total Bilirubin Direct Bilirubin AST ALT Alkaline Phosphatase Troponin I High Sens B-Natriuretic Peptide Total Protein Albumin Lipase COVID-19 (RACHEL) Negative COVID-19 Clin Com See Note Influenza Type A (JUWAN) Negative Influenza Type B (JUWAN) Negative Influenza A & B Note See Note 10/24/22 10/24/22 00:31 06:12 MCV MCH MCHC RDW Plt Count MPV Immature Gran % (Auto) Neut % (Auto) Lymph % (Auto) [place] % (Auto) Eos % (Auto) Baso % (Auto) Lymph # (Auto) [place] # (Auto) Eos # (Auto) Baso # (Auto) Abs Immat Gran (auto) Absolute Neuts (auto) Absolute Nucleated RBC Nucleated RBC % (auto) PT INR APTT 27.3 D-Dimer High Sensitivty VBG pH VBG pCO2 VBG pO2 VBG HCO3 VBG O2 Saturation VBG Base Excess Anion Gap 13 Estim Creat Clear Calc 50.3 Estimated GFR > 60 Random Glucose 105 Lactic Acid Calcium 8.9 Magnesium Total Bilirubin 1.6 H Direct Bilirubin AST 18 ALT 13 Alkaline Phosphatase 89 Troponin I High Sens B-Natriuretic Peptide Total Protein 6.5 Albumin 3.5 Lipase COVID-19 (RACHEL) COVID-19 Clin Com Influenza Type A (JUWAN) Influenza Type B (JUWAN) Influenza A & B Note Assessment and Plan (1) Acute respiratory failure with hypoxia: Status: Acute (2) Unresponsiveness: Status: Acute (3) Pulmonary embolism: Status: Acute Plan 82-year-old male who presents to the hospital from skilled nursing after being found unresponsive and cyanotic for an unknown period of time #? acute hypoxic respiratory failure likely from combination of PE and OTA -address underlying issues of copd and PE -Adjust O2 to 93% #? acute PE on Eliquis ( not sure if was taking as directed) -No DVT -Agree with Lovenox for now -echo -hematology consult #? unresponsiveness/encephalopathy, CT head negative. -? likely secondary to hypoxia #? Permanent AFib--anticoagulation as above with Lovenox # ? history of CVA -? continue statin Change status to inpatient and at least 2 midngithts stay for acute hypoxic respriatory failure requiring high amount of O2 Time Spent With Patient Time: Total time managing care of this patient today ____ minutes. Quality Stroke Does the patient have a stroke diagnosis?: No VTE Prior VTE?: No VTE Risk Level:: Medical - moderate - high VTE Device Contraindication: Treatment Not Indicated VTE Drug Contraindication: N/A - Med Ordered
[2022-10-24 14:56] VITALS: BMI 43.3
[2022-10-24 15:31] LABS: Appearance Urine Clear; Color Urine Yellow; Glucose Urine UA Negative (Negative); Leukocyte Esterase Urine Moderate (2+) (Negative); Nitrite Urine Negative (Negative); PH 5.5 (5.0-9.0); Specific Gravity - Urine >= 1.030 (1.005-1.025); UMIC TRIGGER UACC YES; Urine Blood Negative (Negative); Urine Ketones Negative (Negative); Urine Protein Negative (Neg-Trace)
[2022-10-24 15:37] LABS: Amphetamine Screen Urine Not Detected (Not Detect); Barbiturates, Urine Not Detected (Not Detect); Benzodiazepines Screen Urine Not Detected (Not Detect); Cannabinoid Screen Urine Not Detected (Not Detect); Cocaine Screen Urine Not Detected (Not Detect); Fentanyl, urine Not Detected (Not Detect); Opiate Screen Urine Not Detected (Not Detect); Phencyclidine Screen Urine Not Detected (Not Detect)
[2022-10-24 15:38] LABS: Bacteria Urine None Seen (None Seen); RBC Urine 0-2 /HPF (0-2); UACC Culture Trigger YES
[2022-10-24 19:55] VITALS: BP 107/53; PULSE 95; RESP 17; TEMP 36.2; O2SAT 95
--- NOTE | 2022-10-24 20:25 | PC.NURSE ---
Patient has redness , fungal approx 4 inches by 2 inches center of coccyx
[2022-10-24] MEDS: Furosemide 20 MG TABLET 60 MG PO (20:37)
[2022-10-24] MEDS: Sacubitril/Valsartan 24/26 1 TAB TABLET PO (20:37)
[2022-10-24] MEDS: Metoprolol Tartrate 50 MG TABLET PO (20:37)
[2022-10-25 00:14] LABS: INTERNATIONAL NORM RATIO 1.4 (0.9-1.1); Prothrombin Time 16.2 SEC (10.0-13.1)
[2022-10-25 04:00] VITALS: BP 99/46; PULSE 69; RESP 17; TEMP 36.4; O2SAT 95
[2022-10-25 06:45] VITALS: BMI 42.3
[2022-10-25 08:00] VITALS: BP 119/56; PULSE 72; RESP 18; TEMP 36; O2SAT 94
[2022-10-25] MEDS: Furosemide 20 MG TABLET 60 MG PO ×2 (09:07→20:56)
[2022-10-25] MEDS: Sacubitril/Valsartan 24/26 1 TAB TABLET PO ×2 (09:07→20:56)
[2022-10-25] MEDS: Famotidine 20 MG TABLET PO (09:07)
[2022-10-25] MEDS: Atorvastatin Calcium 40 MG TABLET PO (09:07)
[2022-10-25] MEDS: Metoprolol Tartrate 50 MG TABLET PO ×2 (09:08→20:56)
[2022-10-25] MEDS: 0.9 % Sodium Chloride Flush 3 ML SYRINGE IVFLUSH (09:08)
[2022-10-25] MEDS: Nystatin Cream 15 GM TUBE 1 APPL TOPICAL ×2 (09:44→20:56)
[2022-10-25] MEDS: Enoxaparin Sodium 60 MG/0.6 ML SYRINGE SUBCUT (11:33)
--- NOTE | 2022-10-25 13:07 | PM.HEMONCCN ---
Subjective - Subjective Chief complaint: Weakness Patient: new to practice Consult date: 10/25/22 Primary Care Provider: HELDER SIMS HPI - Consult Narrative Reason for consult: ?Failed Eliquis Narrative: David Craft is a 82 year old male who was brought in by EMS from assisted living facility because of unresponsiveness and hypoxemia. Apparently he was cyanotic and diaphoretic. He was placed on oxygen and his O2 sats were in the high 80s. Without oxygen his O2 sats were in the low 70s. Workup in the emergency department revealed a negative D-dimer, CT angiogram showed possible defects in segmental branches of lower lobes, favoring artifact. Bilateral lower extremity Doppler was negative for DVT. Patient was on apixaban for atrial fibrillation. He has a pacemaker and has moderately severe aortic stenosis. Patient is a poor historian. He denies any complaints now and he is unable to tell why he was brought to the hospital. He denies abdominal discomfort or distention although his abdomen looks distended. Review of Systems - Constitutional Reports as per [facility] Medical History: Medical History (Last Reviewed 10/24/22 @ 05:47 by Rizwana Purvis MD) Alcohol dependence in remission Aortic valve stenosis Atrial fibrillation Chronic kidney disease CVA (cerebral vascular accident) Dementia Depression Hypertension Pulmonary hypertension Social History: Social History (Last Reviewed 10/24/22 @ 05:47 by Rizwana Purvis MD) Living Situation History: Household Members: Other Household Members Other:: correction Housing: Jail Do you presently have visiting nurse or other home services: No Alcohol History Details: 1. How often do you have a drink containing alcohol?: a. Never 2. How many drinks containing alcohol do you have on a typical day when you are drinking?: a. 1 or 2 3. How often do you have six or more drinks on one occasion?: a. Never AUDIT-C Alcohol total score: 0 Last drink: Unknown Currently Displaying Signs/Symptoms of Alcohol Withdrawal: No Tobacco History: Patient Tobacco Use Status: Never used Tobacco Smoked in Last 30 Days: No Patient Interested in Nicotine Replacement: No Patient Given Instructions on How to Stop Smoking: No Second Hand Smoke Exposure: Yes Additional Comments: sniked till 2 years ago, Substance Use History: Use of substances other than those prescribed or required for medical reasons: No Currently Displaying Signs/Symptoms of Drug Intoxication Withdrawal: No Any prior treatment program specific to substance use: No Domestic Abuse History: Have you been hit, kicked, punched, or otherwise hurt by someone within the past year? If so, by whom?: No Do you feel safe in your current relationship?: No Current Relationship Is there a partner from a previous relationship who is making you feel unsafe now?: No Are you made to feel afraid or neglected: No Advance Directives: Advance Directives: Yes Advance Directives on File: Yes Advance Directives Date on File: 10/23/22 Homicidal Assessment: Do you have thoughts of harming others: None Do you have a plan to hurt others: No Plan Nutrition Assessment: Recently lost weight without trying: No Eating poorly because of decreased appetite: No Nutrition Risks: No Nutritional Risk Poor oral hygiene: No Home Medications and Allergies Current Medications: Current Medications Acetaminophen (Acetaminophen 325 Mg Tablet) 650 mg PO Q6H PRN PRN Reason: Pain, Mild (Pain Scale 1-3) Acetaminophen (Acetaminophen 325 Mg Tablet) 650 mg PO Q6H PRN PRN Reason: Abdominal Discomfort Al Hydroxide/Mg Hydroxide (Magnesium Hydrox/Alum Hydrox 30 Ml Oral.Susp) 15 ml PO Q6H PRN PRN Reason: GI UPSET Artificial Tears (Artificial Tears 15 Ml Drops) 2 drop EYE-BOTH Q6H PRN PRN Reason: Dry Eye(S) Atorvastatin Calcium (Atorvastatin Calcium 40 Mg Tablet) 40 mg PO DAILY [facility] Last Admin: 10/25/22 09:07 Dose: 40 mg Bisacodyl (Bisacodyl 10 Mg Supp.Rect) 10 mg [place] DAILY PRN PRN Reason: Constipation Docusate Sodium (Docusate Sodium 100 Mg Capsule) 100 mg PO DAILY PRN PRN Reason: Constipation Famotidine (Famotidine 20 Mg Tablet) 20 mg PO DAILY [facility] Last Admin: 10/25/22 09:07 Dose: 20 mg Furosemide (Furosemide 20 Mg Tablet) 60 mg PO BID [facility]; Protocol Last Admin: 10/25/22 09:07 Dose: 60 mg Guaifenesin (Guaifenesin 100 Mg/5 Ml Liquid) 5 ml PO Q4H PRN PRN Reason: Cough Loperamide HCl (Loperamide Hcl 2 Mg Capsule) 2 mg PO Q4H PRN PRN Reason: Allergic Reaction Magnesium Hydroxide (Milk Of Magnesia 30 Ml Oral.Susp) 30 ml PO DAILY PRN PRN Reason: Constipation Metoprolol Tartrate (Metoprolol Tartrate 50 Mg Tablet) 50 mg PO BID [facility]; Protocol Last Admin: 10/25/22 09:08 Dose: 50 mg Naloxone HCl (Naloxone Hcl Nasal 4 Mg [place]) 4 mg NOSTRILALT Q3M PRN PRN Reason: Opiate Reversal Nystatin (Nystatin Cream 15 Gm Tube) 1 appl TOPICAL BID [facility]; Protocol Last Admin: 10/25/22 09:44 Dose: 1 appl Ondansetron HCl (Ondansetron Hcl 4 Mg/2 Ml Vial) 4 mg IVPUSH Q8H PRN PRN Reason: Nausea and Vomiting Sacubitril/Valsartan (Sacubitril/Valsartan 1 Tab Tablet) 1 tab PO BID [facility]; Protocol Last Admin: 10/25/22 09:07 Dose: 1 tab Simethicone (Simethicone 80 Mg Tab.Chew) 80 mg PO Q6H PRN PRN Reason: BLOATING Sodium Biphosphate/Sodium Phosphate (Sodium Phosphate,[place]-Dibasic 133 Ml Enema) 133 ml [place] DAILY PRN PRN Reason: Constipation Sodium Chloride (0.9 % Sodium Chloride Flush 3 Ml Syringe) 3 ml IVFLUSH QSHIFT [facility] Last Admin: 10/25/22 09:08 Dose: 3 ml Home Medications Medication Instructions Recorded Confirmed Type acetaminophen 325 mg tablet 650 mg PO Q6H PRN Abdominal 10/23/22 10/23/22 History Discomfort apixaban 5 mg tablet (Eliquis) 5 mg PO BID 10/23/22 10/23/22 History atorvastatin 40 mg tablet 40 mg PO DAILY 10/23/22 10/23/22 History bisacodyl 10 mg rectal suppository 10 mg MD DAILY PRN Constipation 10/23/22 10/24/22 History famotidine 20 mg tablet 20 mg PO DAILY 10/23/22 10/23/22 History guaifenesin 100 mg/5 mL oral syrup 200 mg PO Q4H PRN Cough 10/23/22 10/23/22 History loperamide 2 mg capsule 2 mg PO Q4H PRN Allergic Reaction 10/23/22 10/23/22 History magnesium hydroxide 400 mg/5 mL 30 ml PO DAILY PRN Constipation 10/23/22 10/24/22 History oral suspension (Milk of Magnesia) metoprolol tartrate 50 mg tablet 50 mg PO BID 10/23/22 10/24/22 History sacubitril 24 mg-valsartan 26 mg 1 tab PO BID 10/23/22 10/23/22 History tablet (Entresto) simethicone 80 mg chewable tablet 80 mg PO Q6H PRN BLOATING 10/23/22 10/24/22 History aluminum-mag hydroxide-simethicone 15 ml PO Q6H PRN GI UPSET 10/24/22 10/24/22 History 200 mg-200 mg-20 mg/5 mL oral susp carboxymethylcellulose sodium 1 % 2 drp ophthalmic (eye) Q6H PRN Dry 10/24/22 10/24/22 History eye drops (Artificial Tears Eye(S) (carboxymethylcellulose)) furosemide 20 mg tablet 60 mg PO BID 10/24/22 10/24/22 History naloxone 4 mg/actuation nasal 4 mg intranasal Q3M PRN Opiate 10/24/22 10/24/22 History spray (Narcan) Reversal sodium phosphates 19 gram-7 118 ml MD DAILY PRN Constipation 10/24/22 10/24/22 History gram/118 mL enema (Fleet Enema) Allergies Allergy/AdvReac Type Severity Reaction Status Date / Time Unable to Assess Allergy Unverified 10/23/22 19:35 Physical Exam Vital signs: Vital Signs Temp 96.8 F 10/25/22 08:00 Pulse 72 10/25/22 08:00 Resp 18 10/25/22 08:00 BP 119/56 L 10/25/22 08:00 Pulse Ox 94 10/25/22 08:00 O2 Del Method Room Air 10/25/22 08:00 O2 Flow Rate 4 10/25/22 04:00 Intake & Output 10/24/22 10/25/22 10/25/22 18:59 06:59 18:59 Intake Total 320 / 320 Output Total 300 / 300 Balance 20 / 20 Urine Output (Average ml/kg/hr) 0.29 Intake: Intake, Oral Amount 320 / 320 Output: Output, Urine Amount (Catheter) 300 / 300 tx cath 300 / 300 Other: Number of Incontinent Voids 2 Urine Color Yellow Last Bowel Movement 10/23/22 Weight 87.7 kg 85.5 kg Weight in Grams [id number] Weight 85.5 kg - Constitutional Present: no acute distress - Routine HEENT Exam Head: Present: normal inspection Eye: Present: EOMI - Routine Neck Exam Present: supple - Routine Respiratory Exam Absent: accessory muscle use - Routine Cardiovascular Exam Cardiovascular: Present: S1, S2 - Routine Abdominal Exam Present: distended, soft - Routine Extremities Exam Present: pulses intact - Routine Neurological Exam Present: alert Hem/Onc Consult Result - Labs CBC & Chem 7: 10/23/22 20:10 10/24/22 06:12 Labs: Urine 10/24/22 Range/Units 14:59 Urine Color Yellow Urine Appearance Clear Urine pH 5.5 (5.0-9.0) Ur Specific [place] >= 1.030 H (1.005-1.025) Urine Protein Negative (Neg-Trace) mg/dL Urine Glucose (UA) Negative (Negative) mg/dL Assessment and Plan Patient Active problem list reviewed?: Yes (1) Acute respiratory failure with hypoxia Status: Acute Assessment and plan: 1. This is a 82-year-old male with multiple medical problems, history of atrial fibrillation, status post pacemaker and aortic valve stenosis who was brought in for severe hypoxemia. His D-dimer was not elevated, 161 NG/mL. CT angiogram showed some atelectasis, emphysematous changes, no dense consolidation or significant pulmonary emboli. Because of poor quality study, they seemed to be very small filling defects in segmental branches of right lung base but these appear more to be artifacts. Lower extremity Doppler was negative for DVT. In any case, even if this was pulmonary emboli, this does not account for this degree of hypoxia that patient had. Therefore cause of his hypoxemia is unclear at this time. He should be continued on anticoagulation with apixaban for his atrial fibrillation. I thank you for the consult. - Time Spent With Patient Time Spent with Patient (in minutes): 20
--- NOTE | 2022-10-25 13:28 | P.PNIM_ITS ---
Subjective Subjective Date of Service: 10/25/22 Interval History: No acute issues overnight. States feels much better Review of Systems Denies chest pain Denies shortness of breath Denies nausea vomiting diarrhea Denies fever chills Physical Exam Vital Signs: Vital Signs: Last Vital Signs Temp 96.8 F 10/25/22 08:00 Pulse 72 10/25/22 08:00 Resp 18 10/25/22 08:00 BP 119/56 L 10/25/22 08:00 Pulse Ox 94 10/25/22 08:00 O2 Del Method Room Air 10/25/22 08:00 O2 Flow Rate 4 10/25/22 04:00 BMI result Body Mass Index 42.3 Const: Other: Awake alert no acute distress Resp: Other: Clear to auscultation bilaterally no rales rhonchi or wheezes Cardio: Other: No S4; positive S1-S2; no S3 murmurs or gallops GI: Other: Soft nontender nondistended normoactive bowel sounds Extrem: Other: No edema bilaterally Objective Data Active Medications Acetaminophen (Acetaminophen 325 Mg Tablet) 650 mg PO Q6H PRN PRN Reason: Pain, Mild (Pain Scale 1-3) Acetaminophen (Acetaminophen 325 Mg Tablet) 650 mg PO Q6H PRN PRN Reason: Abdominal Discomfort Al Hydroxide/Mg Hydroxide (Magnesium Hydrox/Alum Hydrox 30 Ml Oral.Susp) 15 ml PO Q6H PRN PRN Reason: GI UPSET Artificial Tears (Artificial Tears 15 Ml Drops) 2 drop EYE-BOTH Q6H PRN PRN Reason: Dry Eye(S) Atorvastatin Calcium (Atorvastatin Calcium 40 Mg Tablet) 40 mg PO DAILY [facility] Last Admin: 10/25/22 09:07 Dose: 40 mg Documented By: JOSEPH Bisacodyl (Bisacodyl 10 Mg Supp.Rect) 10 mg [place] DAILY PRN PRN Reason: Constipation Docusate Sodium (Docusate Sodium 100 Mg Capsule) 100 mg PO DAILY PRN PRN Reason: Constipation Famotidine (Famotidine 20 Mg Tablet) 20 mg PO DAILY [facility] Last Admin: 10/25/22 09:07 Dose: 20 mg Documented By: JOSEPH Furosemide (Furosemide 20 Mg Tablet) 60 mg PO BID [facility]; Protocol Last Admin: 10/25/22 09:07 Dose: 60 mg Documented By: JOSEPH Guaifenesin (Guaifenesin 100 Mg/5 Ml Liquid) 5 ml PO Q4H PRN PRN Reason: Cough Loperamide HCl (Loperamide Hcl 2 Mg Capsule) 2 mg PO Q4H PRN PRN Reason: Allergic Reaction Magnesium Hydroxide (Milk Of Magnesia 30 Ml Oral.Susp) 30 ml PO DAILY PRN PRN Reason: Constipation Metoprolol Tartrate (Metoprolol Tartrate 50 Mg Tablet) 50 mg PO BID [facility]; Protocol Last Admin: 10/25/22 09:08 Dose: 50 mg Documented By: JOSEPH Naloxone HCl (Naloxone Hcl Nasal 4 Mg [place]) 4 mg NOSTRILALT Q3M PRN PRN Reason: Opiate Reversal Nystatin (Nystatin Cream 15 Gm Tube) 1 appl TOPICAL BID [facility]; Protocol Last Admin: 10/25/22 09:44 Dose: 1 appl Documented By: JOSEPH Ondansetron HCl (Ondansetron Hcl 4 Mg/2 Ml Vial) 4 mg IVPUSH Q8H PRN PRN Reason: Nausea and Vomiting Sacubitril/Valsartan (Sacubitril/Valsartan 1 Tab Tablet) 1 tab PO BID [facility]; Protocol Last Admin: 10/25/22 09:07 Dose: 1 tab Documented By: JOSEPH Simethicone (Simethicone 80 Mg Tab.Chew) 80 mg PO Q6H PRN PRN Reason: BLOATING Sodium Biphosphate/Sodium Phosphate (Sodium Phosphate,[place]-Dibasic 133 Ml Enema) 133 ml [place] DAILY PRN PRN Reason: Constipation Sodium Chloride (0.9 % Sodium Chloride Flush 3 Ml Syringe) [facility] Last Admin: 10/25/22 09:08 Dose: 3 ml Documented By: JOSEPH Labs 10/23/22 20:10 10/24/22 06:12 Labs: Laboratory Results - last 24 hr 10/24/22 10/24/22 10/24/22 14:59 14:59 23:42 PT 16.2 H INR 1.4 H Urine Color Yellow Urine Appearance Clear Urine pH 5.5 Ur Specific [place] >= 1.030 H Urine Protein Negative Urine Glucose (UA) Negative Urine Ketones Negative Urine Blood Negative Urine Nitrite Negative Ur Leukocyte Esterase Moderate (2+) H Urine RBC 0-2 Urine WBC 11-20 H Ur Squamous Epith Cells 3-5 Urine Bacteria None Seen Hyaline Casts 6-10 Urine Opiates Screen Not Detected Urine Fentanyl Screen Not Detected Ur Barbiturates Screen Not Detected Ur Phencyclidine Scrn Not Detected Ur Amphetamines Screen Not Detected U Benzodiazepines Scrn Not Detected Urine Cocaine Screen Not Detected U Marijuana (THC) Screen Not Detected Microbiology Microbiology Results: Microbiology 10/23/22 20:27 Blood Culture - Preliminary Blood - Venous No growth after 24 hours. 10/23/22 20:09 Blood Culture - Preliminary Blood - Venous No growth after 24 hours. Assessment and Plan (1) Acute respiratory failure with hypoxia: Status: Acute (2) Unresponsiveness: Status: Acute Plan 82-year-old male who presents to the hospital from senior living after being found unresponsive and cyanotic for an unknown period of time; doubt acute PE given D-dimer 150s and marginal CTA 1.Acute hypoxic respiratory failure/doubt PE -will DC Lovenox in favor of Eliquis -echo ordered; await results -hematology consult 2.Unresponsiveness/encephalopathy -? likely secondary to hypoxia 3. AFib(chronic) -Rate control adequate -resume Eliquis Patient will require ongoing hospitalization to verify cause for acute hypoxic respiratory failure Time Spent With Patient Time: Total time managing care of this patient today ____ minutes. Quality Stroke Does the patient have a stroke diagnosis?: No VTE Prior VTE?: No VTE Risk Level:: Medical - moderate - high VTE Device Contraindication: Treatment Not Indicated VTE Drug Contraindication: N/A - Med Ordered
[2022-10-25 15:58] VITALS: BP 115/56; PULSE 66; RESP 16; TEMP 36; O2SAT 97
--- NOTE | 2022-10-25 16:19 | MHC.CM.PN ---
Pt from [facility] and will return when medically stable: Pt has HCP and MOLST on file - verified w/pt: IMM in chart: Pt will need BLS transport back to SNF. CM to follow.
[2022-10-25 18:18] VITALS: PULSE 73
[2022-10-25 20:00] VITALS: BP 122/58; PULSE 75; RESP 18; TEMP 36.1; O2SAT 96
[2022-10-26 03:53] VITALS: BP 107/49; PULSE 65; RESP 15; TEMP 36; O2SAT 98
[2022-10-26 06:07] LABS: MANUAL DIFF FLAG NO
[2022-10-26 06:13] LABS: Basophils Percent Auto 0.3 % (0-2); Eosinophils Absolute Auto 0.3 X10*3/uL (0.0-0.4); Eosinophils Percent Auto 4.1 % (0-4); Hemoglobin 12.6 g/dl (14.0-18.0); Imm Gran Abs Auto 0.02 X10*3/uL (0.00-0.03); Imm Gran Pct Auto 0.3 % (0.0-0.4); Lymphocytes Absolute Auto 1.6 X10*3/uL (1.2-4.9); Lymphocytes Percent Auto 20.2 % (20-40); Mean Corpuscular HGB Conc 30.7 g/dl (31.0-36.0); Mean Corpuscular Volume 94.5 fL (80.0-98.0); Mean Platelet Volume 9.8 fL (9.4-12.4); Monocytes Absolute Auto 1.2 X10*3/uL (0.1-1.2); Monocytes Percent Auto 14.6 % (2-11); Neutrophils Absolute Auto 4.8 x10*3/uL (2.0-8.3); Neutrophils Percent Auto 60.5 % (45-73); Platelet Count 183 X10*3/uL (160-400); Red Blood Count 4.34 X10*6/uL (4.60-5.80); Red Cell Distribution Width 13.5 % (11.0-16.0); White Blood Count 7.9 X10*3/uL (4.8-10.8)
[2022-10-26 06:51] LABS: Alanine Aminotransferase 12 U/L (0-40); Albumin Level 3.2 g/dL (3.5-5.0); Alkaline Phosphatase 78 U/L (39-117); Anion Gap 12 (12-20); Aspartate Amino Transferase 16 U/L (5-37); Bilirubin Total 1.9 mg/dL (0.0-1.0); Blood Urea Nitrogen 15 mg/dL (9-16); Calcium 8.2 mg/dL (8.4-10.2); Carbon Dioxide 29 mmol/L (22-29); Chloride 103 mmol/L (96-108); Estimated Glomerular Filt Rate > 60; Glucose Fasting 109 mg/dL (60-99); Potassium 4.1 mmol/L (3.3-5.1); Sodium 140 mmol/L (135-145)
[2022-10-26 07:45] VITALS: BP 140/62; PULSE 78; RESP 18; TEMP 36.1; O2SAT 92
[2022-10-26] MEDS: Atorvastatin Calcium 40 MG TABLET PO (08:43)
[2022-10-26] MEDS: Sacubitril/Valsartan 24/26 1 TAB TABLET PO ×2 (08:43→20:47)
[2022-10-26] MEDS: Nystatin Cream 15 GM TUBE 1 APPL TOPICAL ×2 (08:43→20:52)
[2022-10-26] MEDS: Furosemide 20 MG TABLET 60 MG PO ×2 (08:43→20:47)
[2022-10-26] MEDS: Famotidine 20 MG TABLET PO (08:43)
[2022-10-26] MEDS: Metoprolol Tartrate 50 MG TABLET PO (08:43)
--- NOTE | 2022-10-26 09:44 | P.CONCA_ITS ---
History of Present Illness History of Present Illness Date of Service: 10/26/22 Requesting physician: Richard Delgado Consult reason: other (Unresponsive) Chief complaint: PE Narrative: I was consulted to see David in cardiology consultation today due to his hospitalization due to unresponsive episode along with cyanosis. He lives at the longterm facility and was found to be unresponsive and cyanotic. Exact chronology is not clear. Patient is not sure why he has the hospital but said he was sent over from longterm facility. Does not recall passing out. He says generally at longterm facility for short distance he can walk without any support but for long distances he can walk with a walker. He does get short of breath. He denies any orthopnea, PND, leg edema recently. Denies any weight gain. 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 Aortic stenosis difficult to assess by echocardiogram due to poor quality of the study. When he came in he was suspected to have pulmonary embolism although CTA was of poor quality and only shows distal emboli and that could be artifactual. His D-dimers within 150. he currently denies any symptoms. Denies any palpitations. Denies syncopal episode. Denies any exertional chest pain. He prefers that he would want to go home. He is on Entresto therapy for heart failure and cardiomyopathy. He is not on a beta-nakul for unclear reasons probably because he had complete heart block. Currently however he has appears to be of functioning pacemaker. He was started on Eliquis therapy this morning. Review of Systems Constitutional: Constitutional: Reports no additional constitutional complaints Eyes: Eyes: Reports no additional eye complaints Cardiovascular: Cardiovascular: Denies chest pain, Denies leg edema, Denies lightheadedness, Denies palpitations, Reports dyspnea on exertion and Reports other ( Unresponsive episode) Respiratory: Respiratory: Reports dyspnea on exertion Gastrointestinal: Gastrointestinal: Reports no additional gastrointestinal complaints Integumentary/Breasts: Skin/Breast: Reports system reviewed and no additional complaints, except as docu Neurologic: Reports system reviewed and no additional complaints, except as documented Psychiatric: Psychiatric: Reports no additional psychiatric complaints Endocrine: Endocrine: Denies palpitations PMFSH Past Medical History Medical History (Updated 10/26/22 @ 09:53 by Misha Dorado MD) Alcohol dependence in remission Aortic valve stenosis Atrial fibrillation Chronic kidney disease CVA (cerebral vascular accident) Dementia Depression Hypertension Pulmonary hypertension Social History Social History Household Members: Other Household Members Other:: [facility] Housing: [facility] Do you presently have visiting nurse or other home services: No Patient Tobacco Use Status: Never used Tobacco Smoked in Last 30 Days: No Patient Interested in Nicotine Replacement: No Patient Given Instructions on How to Stop Smoking: No Second Hand Smoke Exposure: Yes Use of substances other than those prescribed or required for medical reasons: No Currently Displaying Signs/Symptoms of Drug Intoxication Withdrawal: No Any prior treatment program specific to substance use: No Have you been hit, kicked, punched, or otherwise hurt by someone within the past year? If so, by whom?: No Do you feel safe in your current relationship?: No Current Relationship Is there a partner from a previous relationship who is making you feel unsafe now?: No Are you made to feel afraid or neglected: No Advance Directives: Yes Advance Directives on File: Yes Advance Directives Date on File: 10/23/22 Do you have thoughts of harming others: None Do you have a plan to hurt others: No Plan Recently lost weight without trying: No Eating poorly because of decreased appetite: No Nutrition Risks: No Nutritional Risk Poor oral hygiene: No service: No Current occupational status: retired [employer] Allergies Allergy/AdvReac Type Severity Reaction Status Date / Time Unable to Assess Allergy Unverified 10/23/22 19:35 Active Medications: Current Medications Acetaminophen (Acetaminophen 325 Mg Tablet) 650 mg PO Q6H PRN PRN Reason: Pain, Mild (Pain Scale 1-3) Acetaminophen (Acetaminophen 325 Mg Tablet) 650 mg PO Q6H PRN PRN Reason: Abdominal Discomfort Al Hydroxide/Mg Hydroxide (Magnesium Hydrox/Alum Hydrox 30 Ml Oral.Susp) 15 ml PO Q6H PRN PRN Reason: GI UPSET Artificial Tears (Artificial Tears 15 Ml Drops) 2 drop EYE-BOTH Q6H PRN PRN Reason: Dry Eye(S) Atorvastatin Calcium (Atorvastatin Calcium 40 Mg Tablet) 40 mg PO DAILY DILEEP Last Admin: 10/26/22 08:43 Dose: 40 mg Bisacodyl (Bisacodyl 10 Mg Supp.Rect) 10 mg [place] DAILY PRN PRN Reason: Constipation Docusate Sodium (Docusate Sodium 100 Mg Capsule) 100 mg PO DAILY PRN PRN Reason: Constipation Famotidine (Famotidine 20 Mg Tablet) 20 mg PO DAILY [facility] Last Admin: 10/26/22 08:43 Dose: 20 mg Furosemide (Furosemide 20 Mg Tablet) 60 mg PO BID [facility]; Protocol Last Admin: 10/26/22 08:43 Dose: 60 mg Guaifenesin (Guaifenesin 100 Mg/5 Ml Liquid) 5 ml PO Q4H PRN PRN Reason: Cough Loperamide HCl (Loperamide Hcl 2 Mg Capsule) 2 mg PO Q4H PRN PRN Reason: Allergic Reaction Magnesium Hydroxide (Milk Of Magnesia 30 Ml Oral.Susp) 30 ml PO DAILY PRN PRN Reason: Constipation Metoprolol Tartrate (Metoprolol Tartrate 50 Mg Tablet) 50 mg PO BID [facility]; Protocol Last Admin: 10/26/22 08:43 Dose: 50 mg Naloxone HCl (Naloxone Hcl Nasal 4 Mg [place]) 4 mg NOSTRILALT Q3M PRN PRN Reason: Opiate Reversal Nystatin (Nystatin Cream 15 Gm Tube) 1 appl TOPICAL BID [facility]; Protocol Last Admin: 10/26/22 08:43 Dose: 1 appl Ondansetron HCl (Ondansetron Hcl 4 Mg/2 Ml Vial) 4 mg IVPUSH Q8H PRN PRN Reason: Nausea and Vomiting Sacubitril/Valsartan (Sacubitril/Valsartan 1 Tab Tablet) 1 tab PO BID [facility]; Protocol Last Admin: 10/26/22 08:43 Dose: 1 tab Simethicone (Simethicone 80 Mg Tab.Chew) 80 mg PO Q6H PRN PRN Reason: BLOATING Sodium Biphosphate/Sodium Phosphate (Sodium Phosphate,[place]-Dibasic 133 Ml Enema) 133 ml [place] DAILY PRN PRN Reason: Constipation Sodium Chloride (0.9 % Sodium Chloride Flush 3 Ml Syringe) 3 ml IVFLUSH QSHIFT [facility] Last Admin: 10/26/22 08:46 Dose: Not Given Home Medications Medication Instructions Recorded Confirmed Last Taken Type acetaminophen 325 mg tablet 650 mg PO Q6H PRN Abdominal 10/23/22 10/23/22 Unknown History Discomfort apixaban 5 mg tablet (Eliquis) 5 mg PO BID 10/23/22 10/23/22 Unknown History atorvastatin 40 mg tablet 40 mg PO DAILY 10/23/22 10/23/22 Unknown History bisacodyl 10 mg rectal suppository 10 mg [place] DAILY PRN Constipation 10/23/22 10/24/22 Unknown History famotidine 20 mg tablet 20 mg PO DAILY 10/23/22 10/23/22 Unknown History guaifenesin 100 mg/5 mL oral syrup 200 mg PO Q4H PRN Cough 10/23/22 10/23/22 Unknown History loperamide 2 mg capsule 2 mg PO Q4H PRN Allergic Reaction 10/23/22 10/23/22 Unknown History magnesium hydroxide 400 mg/5 mL 30 ml PO DAILY PRN Constipation 10/23/22 10/24/22 Unknown History oral suspension (Milk of Magnesia) metoprolol tartrate 50 mg tablet 50 mg PO BID 10/23/22 10/24/22 Unknown History sacubitril 24 mg-valsartan 26 mg 1 tab PO BID 10/23/22 10/23/22 Unknown History tablet (Entresto) simethicone 80 mg chewable tablet 80 mg PO Q6H PRN BLOATING 10/23/22 10/24/22 Unknown History aluminum-mag hydroxide-simethicone 15 ml PO Q6H PRN GI UPSET 10/24/22 10/24/22 Unknown History 200 mg-200 mg-20 mg/5 mL oral susp carboxymethylcellulose sodium 1 % 2 drp ophthalmic (eye) Q6H PRN Dry 10/24/22 10/24/22 Unknown History eye drops (Artificial Tears Eye(S) (carboxymethylcellulose)) furosemide 20 mg tablet 60 mg PO BID 10/24/22 10/24/22 Unknown History naloxone 4 mg/actuation nasal 4 mg intranasal Q3M PRN Opiate 10/24/22 10/24/22 Unknown History spray (Narcan) Reversal sodium phosphates 19 gram-7 118 ml [place] DAILY PRN Constipation 10/24/22 10/24/22 Unknown History gram/118 mL enema (Fleet Enema) Physical Exam Vital Signs: Vital Signs: Last Vital Signs Temp 96.9 F 10/26/22 07:45 Pulse 78 10/26/22 07:45 Resp 18 10/26/22 07:45 BP 140/62 H 10/26/22 07:45 Pulse Ox 92 10/26/22 07:45 O2 Del Method Oxymask 10/26/22 07:45 O2 Flow Rate 4 10/26/22 07:45 FiO2 95 10/25/22 18:18 BMI result Body Mass Index 42.3 Const: General: cooperative, comfortable, no acute distress, alert and awake Nutritional Appearance: obese Orientation/consciousness: patient oriented x3 Limitations: no limitations HEENT: Head: Yes normocephalic and Yes atraumatic Neck: Neck: Yes trachea midline, Yes supple and Yes no JVD Resp: Effort & Inspection: normal respiratory effort Auscultation: clear to auscultation bilaterally Cardio: Jugular venous distension: no JVD Palpation: abnormal PMI displaced PMI Rate: regular rate Rhythm: regular rhythm Heart sounds: S1 normal heart sound present, no click, no gallops and Murmur heart sound present systolic mid, decrescendo and crescendo GI: Auscultation: normal bowel sounds Skin: General skin exam: no rashes or lesions noted and ecchymosis Neuro: General: patient oriented x3 and no focal motor deficits Extrem: General: Yes no clubbing, cyanosis or edema Objective Labs and Meds 10/26/22 05:41 10/26/22 05:41 Lab results: Laboratory Results - last 24 hr 10/26/22 10/26/22 05:41 05:41 WBC 7.9 RBC 4.34 L Hgb 12.6 L Hct 41.0 L MCV 94.5 D MCH 29.0 MCHC 30.7 L RDW 13.5 Plt Count 183 MPV 9.8 Immature Gran % (Auto) 0.3 Neut % (Auto) 60.5 Lymph % (Auto) 20.2 [place] % (Auto) 14.6 H Eos % (Auto) 4.1 H Baso % (Auto) 0.3 Lymph # (Auto) 1.6 [place] # (Auto) 1.2 Eos # (Auto) 0.3 Baso # (Auto) 0.0 Abs Immat Gran (auto) 0.02 Absolute Neuts (auto) 4.8 Absolute Nucleated RBC 0.000 Nucleated RBC % (auto) 0.0 Sodium 140 Potassium 4.1 Chloride 103 Carbon Dioxide 29 Anion Gap 12 BUN 15 Creatinine 0.74 Estim Creat Clear Calc 66.0 Estimated GFR > 60 Fasting Glucose 109 H Calcium 8.2 L D Total Bilirubin 1.9 H AST 16 ALT 12 Alkaline Phosphatase 78 Total Protein 6.0 L Albumin 3.2 L EKG shows ventricular paced rhythm, underlying atrial rhythm is unclear question flutter question sinus question atrial fibrillation Assessment and Plan (1) Unresponsiveness: Status: Acute patient sent to the hospital with unresponsive episode from longterm facility with unclear surrounding events. Patient does not recall while he is here. Cause of unresponsiveness is unclear although there is concern because patient was cyanotic on presentation. The whether this was related to cardiac event is unclear. He remains hypoxic and requires oxygen but is not in overt heart failure at this point time. Oxygen requirement may be due to obesity hypoventilation. Consider oxygen desaturation study and blood gas to see if he requires oxygen on a long-term basis. Will check his pacemaker to see if he has any significant pacer malfunction and/ or ventricular arrhythmias that could cause him to pass out. Aortic stenosis is unlikely to cause him to passed out at rest although unclear whether he was exerting any would have passed out. May require further evaluation as outpatient. (2) Heart failure with reduced ejection fraction: Status: Acute Heart failure with reduced ejection fraction, clinically euvolemic and well compensated. Continue Entresto therapy. Continue current diuretic regimen. Would add Coreg 3.125 mg b.i.d. for heart failure as well as neurohormonal modulation. He understands management of heart failure well. carvedilol will also help with reduction in his ventricular arrhythmia risk. (3) Cardiac pacemaker in situ: Status: Acute Cardiac pacemaker in-situ, seems to be working by EKG. Will have pacer rep evaluate the pacemaker later today. (4) Aortic valve stenosis: Status: Acute Aortic stenosis is difficult to assess by echocardiogram due to limited study. Follow-up with his own contact center consultant as outpatient and consider hemodynamic evaluation of aortic stenosis. (5) Atrial fibrillation: Status: Acute Atrial fibrillation which is currently rate control and with underlying pacemaker. Agree with Eliquis therapy for anticoagulation. Will follow with you if need be. Thank you for allowing me to partake in his care Time Spent With Patient Time: Total time managing care of this patient today ____ minutes. Procedures Date of Service Date of Service: 10/26/22
--- NOTE | 2022-10-26 14:38 | PM.EVENT ---
Event Note Date of Service: 10/26/22 Event Note: Pacemaker interrogated bedside showed normal sinus rhythm with ventricular pacing. No significant ventricular arrhythmia noted. Pacemaker function is adequate. Time Spent With Patient Time: Total time managing care of this patient today ____ minutes.
--- NOTE | 2022-10-26 15:08 | P.PNIM_ITS ---
Subjective Subjective Date of Service: 10/26/22 Interval History: No acute issues overnight. Cardiology consult obtained pacemaker interrogated. No dysrhythmias pacer is functioning well. Still has O2 requirement and desats to high 80s without O2. Asymptomatic Review of Systems Denies chest pain Denies shortness of breath Denies nausea vomiting diarrhea Denies fever chills Physical Exam Vital Signs: Vital Signs: Last Vital Signs Temp 96.9 F 10/26/22 07:45 Pulse 78 10/26/22 07:45 Resp 18 10/26/22 07:45 BP 140/62 H 10/26/22 07:45 Pulse Ox 92 10/26/22 07:45 O2 Del Method Oxymask 10/26/22 07:45 O2 Flow Rate 4 10/26/22 07:45 FiO2 95 10/25/22 18:18 BMI result Body Mass Index 42.3 Const: Other: Awake alert no acute distress Resp: Other: Clear to auscultation bilaterally no rales rhonchi or wheezes Cardio: Other: No S4; positive S1-S2; no S3 murmurs or gallops GI: Other: Soft nontender nondistended normoactive bowel sounds Extrem: Other: No edema bilaterally Objective Data Active Medications Acetaminophen (Acetaminophen 325 Mg Tablet) 650 mg PO Q6H PRN PRN Reason: Pain, Mild (Pain Scale 1-3) Acetaminophen (Acetaminophen 325 Mg Tablet) 650 mg PO Q6H PRN PRN Reason: Abdominal Discomfort Al Hydroxide/Mg Hydroxide (Magnesium Hydrox/Alum Hydrox 30 Ml Oral.Susp) 15 ml PO Q6H PRN PRN Reason: GI UPSET Apixaban (Apixaban 5 Mg Tablet) 5 mg PO BID [facility] Artificial Tears (Artificial Tears 15 Ml Drops) 2 drop EYE-BOTH Q6H PRN PRN Reason: Dry Eye(S) Atorvastatin Calcium (Atorvastatin Calcium 40 Mg Tablet) 40 mg PO DAILY [facility] Last Admin: 10/26/22 08:43 Dose: 40 mg Documented By: MICHELE Bisacodyl (Bisacodyl 10 Mg Supp.Rect) 10 mg [place] DAILY PRN PRN Reason: Constipation Docusate Sodium (Docusate Sodium 100 Mg Capsule) 100 mg PO DAILY PRN PRN Reason: Constipation Famotidine (Famotidine 20 Mg Tablet) 20 mg PO DAILY [facility] Last Admin: 10/26/22 08:43 Dose: 20 mg Documented By: MICHELE Furosemide (Furosemide 20 Mg Tablet) 60 mg PO BID [facility]; Protocol Last Admin: 10/26/22 08:43 Dose: 60 mg Documented By: MICHELE Guaifenesin (Guaifenesin 100 Mg/5 Ml Liquid) 5 ml PO Q4H PRN PRN Reason: Cough Loperamide HCl (Loperamide Hcl 2 Mg Capsule) 2 mg PO Q4H PRN PRN Reason: Allergic Reaction Magnesium Hydroxide (Milk Of Magnesia 30 Ml Oral.Susp) 30 ml PO DAILY PRN PRN Reason: Constipation Metoprolol Tartrate (Metoprolol Tartrate 50 Mg Tablet) 50 mg PO BID [facility]; Protocol Last Admin: 10/26/22 08:43 Dose: 50 mg Documented By: MICHELE Naloxone HCl (Naloxone Hcl Nasal 4 Mg [place]) 4 mg NOSTRILALT Q3M PRN PRN Reason: Opiate Reversal Nystatin (Nystatin Cream 15 Gm Tube) 1 appl TOPICAL BID [facility]; Protocol Last Admin: 10/26/22 08:43 Dose: 1 appl Documented By: MICHELE Ondansetron HCl (Ondansetron Hcl 4 Mg/2 Ml Vial) 4 mg IVPUSH Q8H PRN PRN Reason: Nausea and Vomiting Sacubitril/Valsartan (Sacubitril/Valsartan 1 Tab Tablet) 1 tab PO BID [facility]; Protocol Last Admin: 10/26/22 08:43 Dose: 1 tab Documented By: MICHELE Simethicone (Simethicone 80 Mg Tab.Chew) 80 mg PO Q6H PRN PRN Reason: BLOATING Sodium Biphosphate/Sodium Phosphate (Sodium Phosphate,[place]-Dibasic 133 Ml Enema) 133 ml [place] DAILY PRN PRN Reason: Constipation Sodium Chloride (0.9 % Sodium Chloride Flush 3 Ml Syringe) 3 ml IVFLUSH QSHIFT [facility] Last Admin: 10/26/22 08:46 Dose: Not Given Documented By: MICHLEE Non-Admin Reason: no IV access Labs 10/26/22 05:41 10/26/22 05:41 Labs: Laboratory Results - last 24 hr 10/26/22 10/26/22 05:41 05:41 MCV 94.5 D MCH 29.0 MCHC 30.7 L RDW 13.5 Plt Count 183 MPV 9.8 Immature Gran % (Auto) 0.3 Neut % (Auto) 60.5 Lymph % (Auto) 20.2 [place] % (Auto) 14.6 H Eos % (Auto) 4.1 H Baso % (Auto) 0.3 Lymph # (Auto) 1.6 [place] # (Auto) 1.2 Eos # (Auto) 0.3 Baso # (Auto) 0.0 Abs Immat Gran (auto) 0.02 Absolute Neuts (auto) 4.8 Absolute Nucleated RBC 0.000 Nucleated RBC % (auto) 0.0 Anion Gap 12 Estim Creat Clear Calc 66.0 Estimated GFR > 60 Fasting Glucose 109 H Calcium 8.2 L D Total Bilirubin 1.9 H AST 16 ALT 12 Alkaline Phosphatase 78 Total Protein 6.0 L Albumin 3.2 L Microbiology Microbiology Results: Microbiology 10/24/22 16:12 Urine Culture - Final Urine clean catch - Urine gordon top 10/23/22 20:27 Blood Culture - Preliminary Blood - Venous No growth after 48 hours. 10/23/22 20:09 Blood Culture - Preliminary Blood - Venous No growth after 48 hours. Assessment and Plan (1) Acute respiratory failure with hypoxia: Status: Acute (2) Atrial fibrillation: Status: Acute Plan 82-year-old male who [facility] being found unresponsive and cyanotic for an unknown period of time; doubt acute PE given D-dimer 150s and marginal CTA 1.Acute hypoxic respiratory failure(continues with O2 requirement) -will DC Lovenox in favor of Eliquis -discussed with Hematology on likely related to PE -will ask pulmonary's input 2.Unresponsiveness/encephalopathy -? likely secondary to hypoxia 3. AFib(chronic) -Rate control adequate -resume Eliquis -add Coreg as per Cardiology Patient will require ongoing hospitalization to verify cause for acute hypoxic respiratory failure Time Spent With Patient Time: Total time managing care of this patient today ____ minutes. Quality Stroke Does the patient have a stroke diagnosis?: No VTE Prior VTE?: No VTE Risk Level:: Medical - moderate - high VTE Device Contraindication: Treatment Not Indicated VTE Drug Contraindication: N/A - Med Ordered
[2022-10-26 15:45] VITALS: BP 114/42; PULSE 66; RESP 18; TEMP 36; O2SAT 98
[2022-10-26] MEDS: Apixaban 5 MG TABLET PO ×2 (15:47→20:47)
[2022-10-26 19:14] VITALS: BP 108/40; PULSE 73; RESP 18; TEMP 35.9; O2SAT 95
[2022-10-27 03:20] VITALS: BP 162/74; PULSE 89; RESP 16; TEMP 36.1; O2SAT 93
[2022-10-27 06:34] LABS: MANUAL DIFF FLAG NO
[2022-10-27 06:37] LABS: Basophils Percent Auto 0.2 % (0-2); Eosinophils Absolute Auto 0.4 X10*3/uL (0.0-0.4); Eosinophils Percent Auto 4.4 % (0-4); Hematocrit 43.4 % (42.0-52.0); Hemoglobin 13.3 g/dl (14.0-18.0); Imm Gran Abs Auto 0.04 X10*3/uL (0.00-0.03); Imm Gran Pct Auto 0.5 % (0.0-0.4); Lymphocytes Absolute Auto 1.3 X10*3/uL (1.2-4.9); Lymphocytes Percent Auto 15.9 % (20-40); Mean Corpuscular HGB Conc 30.6 g/dl (31.0-36.0); Mean Corpuscular Hemoglobin 28.9 pg (27.0-33.0); Mean Corpuscular Volume 94.3 fL (80.0-98.0); Mean Platelet Volume 9.7 fL (9.4-12.4); Neutrophils Absolute Auto 5.5 x10*3/uL (2.0-8.3); Platelet Count 191 X10*3/uL (160-400); Red Cell Distribution Width 13.4 % (11.0-16.0); White Blood Count 8.3 X10*3/uL (4.8-10.8)
[2022-10-27 06:53] LABS: Alanine Aminotransferase 12 U/L (0-40); Albumin Level 3.2 g/dL (3.5-5.0); Alkaline Phosphatase 79 U/L (39-117); Anion Gap 12 (12-20); Aspartate Amino Transferase 15 U/L (5-37); Bilirubin Total 1.1 mg/dL (0.0-1.0); Blood Urea Nitrogen 15 mg/dL (9-16); Calcium 8.4 mg/dL (8.4-10.2); Carbon Dioxide 32 mmol/L (22-29); Chloride 101 mmol/L (96-108); Creatinine Clr Calc Pharmacy 66.9; Estimated Glomerular Filt Rate > 60; Glucose Fasting 108 mg/dL (60-99); Sodium 141 mmol/L (135-145); Total Protein 6.2 g/dL (6.5-8.0)
[2022-10-27 08:00] VITALS: BP 106/59; PULSE 103; RESP 18; TEMP 36.2; O2SAT 95
[2022-10-27] MEDS: Furosemide 20 MG TABLET 60 MG PO (08:32)
[2022-10-27] MEDS: Famotidine 20 MG TABLET PO (08:33)
[2022-10-27] MEDS: Sacubitril/Valsartan 24/26 1 TAB TABLET PO (08:33)
[2022-10-27] MEDS: Apixaban 5 MG TABLET PO (08:33)
[2022-10-27] MEDS: Atorvastatin Calcium 40 MG TABLET PO (08:33)
[2022-10-27] MEDS: carvediloL 3.125 MG TABLET PO (08:33)
[2022-10-27] MEDS: Nystatin Cream 15 GM TUBE 1 APPL TOPICAL (08:39)
[2022-10-27 09:08] VITALS: RESP 18; O2SAT 84
[2022-10-27 09:23] VITALS: O2SAT 92
--- NOTE | 2022-10-27 11:20 | PM.DS ---
DS: Providers Provider Date of Service: 10/27/22 Date of admission: 10/24/22 09:30 Date of discharge: 10/27/22 Primary care physician: HELDER SIMS Consults: 10/24/22 10:59 Consult to Hematology / Oncology Routine Consulting Provider: Gail Solomon Reason for consultation: PE, failed eliquis Has provider been notified: No 10/26/22 07:39 Consult to Cardiology Routine Consulting Provider: [facility] Cardiovascular Services Reason for consultation: Syncopal episode...Query pacer interrogation Has provider been notified: Yes 10/26/22 15:07 Consult to Pulmonology Routine Consulting Provider: [facility] Pulmonology Services Reason for consultation: Hypoxia Has provider been notified: No DS: Diagnosis Discharge Diagnosis (1) Acute respiratory failure with hypoxia: Status: Acute (2) Atrial fibrillation: Status: Acute DS: Summary Hospital Course Hospital Course: 82-year-old male with past medical history of aortic valve stenosis, AFib, CVA, depression, pulmonary hypertension, who was a resident of custodial, was sent to the ED after being found unresponsive.? Patient apparently had a pulse.? But was found to be severely cyanotic, profusely diaphoretic, with an O2 sat on arrival of EMS in the 80s.? According to EMS report, patient was on 6 L of nasal cannula satting in the high 80s, when oxygen was removed from the patient he was found to be satting in the 70s.? On arrival to the ED patient hemodynamically stable, and ? denies any chest pain to the ED,? otherwise no other review of system can be obtained Vitals on arrival stable, shows? respiratory rate of 24, Satting 96% on 5 L of oxygen. Hospital Course Given his presentation, CTA of chest was done to rule out PE. This demonstrated small peripheral filling deficits unlikely to be the cause of patient's presentation. D-dimer was unremarkable as well. Seen by Hematology who agreed. Consult was placed to cardiology to interrogate his pacer questioning dysrhythmia as a cause of his presentation. Pacemaker was adequately function and had no record of any dysrhythmia that would be responsible for presentation. During his hospitalization he was fairly sedentary and is bed; he had an O2 requirement of up to 4 L. Given negative exam and negative chest x-ray consult was placed to Pulmonary. Consensus was that patient is obese and was lying down and not aerating as well as he should have been. Pulmonary recommended DuoNeb therapy and increase ambulation. Question sleep study in the future as an outpatient. Overall the patient had no complaints during this hospitalization. At this point in time, the plan is to discharge back to [facility] on O2. This should be titrated to the lowest L flow to maintain his sats greater than 90%. He can follow up with pulmonology as needed as an outpatient Time Spent with Patient Time attestation: Total time managing care of this patient today ____ minutes. Discharge coordination time: Greater than 30 minutes Quality: Safe Use of Opioids Does Pt have an Active Cancer Diagnosis on the Problem List?: No Quality: Stroke Does the patient have a stroke diagnosis?: No Physical Exam Vital Signs: Vital Signs: Last Vital Signs Temp 97.1 F 10/27/22 08:00 Pulse 103 H 10/27/22 08:00 Resp 18 10/27/22 09:08 BP 106/59 L 10/27/22 08:00 Pulse Ox 92 10/27/22 09:23 O2 Del Method Nasal Cannula 10/27/22 09:23 O2 Flow Rate 4 10/27/22 09:23 FiO2 95 10/25/22 18:18 BMI result Body Mass Index 42.3 Const: Other: Awake alert no acute distress Resp: Other: Clear to auscultation bilaterally no rales rhonchi or wheezes Cardio: Other: No S4; positive S1-S2; no S3 murmurs or gallops GI: Other: Soft nontender nondistended normoactive bowel sounds Extrem: Other: No edema bilaterally DS: Data Data Completed and Pending Labs on day of discharge: Laboratory Results - last 24 hr 10/27/22 10/27/22 06:03 06:03 WBC 8.3 RBC 4.60 Hgb 13.3 L Hct 43.4 MCV 94.3 MCH 28.9 MCHC 30.6 L RDW 13.4 Plt Count 191 MPV 9.7 Immature Gran % (Auto) 0.5 H Neut % (Auto) 67.0 Lymph % (Auto) 15.9 L [place] % (Auto) 12.0 H Eos % (Auto) 4.4 H Baso % (Auto) 0.2 Lymph # (Auto) 1.3 [place] # (Auto) 1.0 Eos # (Auto) 0.4 Baso # (Auto) 0.0 Abs Immat Gran (auto) 0.04 H Absolute Neuts (auto) 5.5 Absolute Nucleated RBC 0.000 Nucleated RBC % (auto) 0.0 Sodium 141 Potassium 4.0 Chloride 101 Carbon Dioxide 32 H Anion Gap 12 BUN 15 Creatinine 0.73 Estim Creat Clear Calc 66.9 Estimated GFR > 60 Fasting Glucose 108 H Calcium 8.4 Total Bilirubin 1.1 H AST 15 ALT 12 Alkaline Phosphatase 79 Total Protein 6.2 L Albumin 3.2 L Preliminary micro results at discharge 10/23/22 20:27 Blood Culture - Preliminary Blood - Venous No growth after 48 hours. 10/23/22 20:09 Blood Culture - Preliminary Blood - Venous No growth after 48 hours. Discharge Plan Discharge Anticipated Discharge Date/Time: 10/27/22 11:14 Patient Disposition: Xfer SNF Discharge Diagnosis: Acute hypoxic respiratory failure Referrals: [facility] [Outside] - 1 Week HELDER SIMS [Primary Care Provider] - 1 Week Discharge Medications: New carvedilol 3.125 mg Tablet 3.125 mg PO BID Qty: 60 0RF Protocol: Hold for SBP/HR < HOLD for SBP < : 90 HOLD for HR < : 60 nystatin 100,000 unit/gram Cream 1 appl topical BID Qty: 30 0RF Protocol: Apply to: Apply to: sacral ipratropium-albuterol 0.5 mg-3 mg(2.5 mg base)/3 mL solution for nebulization 3 ml inhalation Q6H PRN (Reason: shortness of breath or wheezing) Qty: 180 0RF Continued atorvastatin 40 mg Tablet 40 mg PO DAILY acetaminophen 325 mg Tablet 650 mg PO Q6H PRN (Reason: Abdominal Discomfort) loperamide 2 mg Capsule 2 mg PO Q4H PRN (Reason: Allergic Reaction) Rx Instructions: administer after each loose stool until symptoms controlled; do not exceed 8 mg per 24 hrs famotidine 20 mg Tablet 20 mg PO DAILY magnesium hydroxide [Milk of Magnesia] 400 mg/5 mL Suspension 30 ml PO DAILY PRN (Reason: Constipation) bisacodyl 10 mg Suppository 10 mg MT DAILY PRN (Reason: Constipation) Rx Instructions: IF MOM INEFFECTIVE guaifenesin 100 mg/5 mL Syrup 200 mg PO Q4H PRN (Reason: Cough) simethicone 80 mg Tablet,Chewable 80 mg PO Q6H PRN (Reason: BLOATING) Eliquis 5 mg Tablet 5 mg PO BID Entresto 24-26 mg Tablet 1 tab PO BID furosemide 20 mg Tablet 60 mg PO BID alum-mag hydroxide-simeth 200-200-20 mg/5 mL Suspension 15 ml PO Q6H PRN (Reason: GI UPSET) Artificial Tears (cmc) 1 % Drops 2 drp ophthalmic (eye) Q6H PRN (Reason: Dry Eye(S)) Fleet Enema 19-7 gram/118 mL Enema 118 ml MT DAILY PRN (Reason: Constipation) Rx Instructions: IF BISACODYL INEFFECTIVE naloxone [Narcan] 4 mg/actuation [place],Non-Aerosol 4 mg INTRANASAL Q3M PRN (Reason: Opiate Reversal) Rx Instructions: spray 1 dose into ONE nostril; alternate nostrils w each dose until help arrives Discontinued metoprolol tartrate 50 mg Tablet 50 mg PO BID Discharge Orders: Discharge Order (Routine); Ordered 10/27/22 Ordered By: Richard Delgado Diet: Advance to usual diet Activity on Discharge: As tolerated Stand Alone Forms: Patient Portal Discharge page Care Plan Goals: Metoprolol changed to Coreg 3.125 b.i.d.. DuoNebs q.6 hours p.r.n. added to respiratory regimen Health Concerns: Titrate O2 to maintain sats greater equal to 90% Plan of Treatment: As per receiving facility Assessment: See discharge summary
--- NOTE | 2022-10-27 11:22 | P.CONPL_ITS ---
History of Present Illness History of Present Illness Consult date: 10/27/22 Requesting physician: Richard Delgado Reason for consult: hypoxemia Chief complaint: PE Narrative: 10/27/2022 PULMONARY CONSULT THIS 82 YEARS OLD GENTLEMAN IS A RESIDENT OF LONG-TERM FACILITY. He was brought into the emergency room on 10/23/22 because of change in mental status and shortness of breath which happened during the night. Patient was found to be hypoxemic, with O2 sat down in 80s and required O2 supplementation. Besides that when he was brought to the emergency room he was hemodynamically stable. He had workup for pulmonary embolism, CTA OF THE CHEST , SHOWED QUESTIONABLE SEGMENTAL EMBOLI BUT NO DEFECTS IN THE MAJOR ARTERIES. DOPPLER ULTRASOUND OF LOWER EXTREMITIES NEGATIVE FOR DVT. . D-DIMER 161 , WHICH IS A NORMAL RANGE. THIS PATIENT HAS BEEN ON ELIQUIS FOR ANTICOAGULATION FOR HIS CHRONIC AORTIC STENOSIS, ATRIAL FIBRILLATION AND PREVIOUS HISTORY OF CVA. Initially treated with Lovenox but diet has been changed back to Eliquis for anticoagulation. He continues to be on O2 supplementation. Mental status has slowly improved but he is not fully alert and conversant even now . It should be noted that there is no previous history of chronic obstructive pulmonary disease in his case. CTA shows some bronchial wall thickening and a few areas with possible mucous retention. He does have moderate obesity especially with a round head and face and short neck, exhibiting physical features indicative of possible obstructive sleep apnea. ? Review of Systems Review of Systems: Yes Unobtainable due to mental status PMFSH Past Medical History Medical History (Updated 10/27/22 @ 11:42 by Cm Trejo MD) Alcohol dependence in remission Aortic valve stenosis Atrial fibrillation Chronic kidney disease COPD (chronic obstructive pulmonary disease) CVA (cerebral vascular accident) Dementia Depression Hypertension Hypoventilation Pulmonary hypertension Restrictive lung disease Social History Social History Household Members: Other Household Members Other:: snf Housing: [facility] Do you presently have visiting nurse or other home services: No Patient Tobacco Use Status: Never used Tobacco Smoked in Last 30 Days: No Patient Interested in Nicotine Replacement: No Patient Given Instructions on How to Stop Smoking: No Second Hand Smoke Exposure: Yes Use of substances other than those prescribed or required for medical reasons: No Currently Displaying Signs/Symptoms of Drug Intoxication Withdrawal: No Any prior treatment program specific to substance use: No Have you been hit, kicked, punched, or otherwise hurt by someone within the past year? If so, by whom?: No Do you feel safe in your current relationship?: No Current Relationship Is there a partner from a previous relationship who is making you feel unsafe now?: No Are you made to feel afraid or neglected: No Advance Directives: Yes Advance Directives on File: Yes Advance Directives Date on File: 10/23/22 Do you have thoughts of harming others: None Do you have a plan to hurt others: No Plan Recently lost weight without trying: No Eating poorly because of decreased appetite: No Nutrition Risks: No Nutritional Risk Poor oral hygiene: No service: No Current occupational status: retired [employer] Allergies Allergy/AdvReac Type Severity Reaction Status Date / Time Unable to Assess Allergy Unverified 10/23/22 19:35 Active Medications: Current Medications Acetaminophen (Acetaminophen 325 Mg Tablet) 650 mg PO Q6H PRN PRN Reason: Pain, Mild (Pain Scale 1-3) Acetaminophen (Acetaminophen 325 Mg Tablet) 650 mg PO Q6H PRN PRN Reason: Abdominal Discomfort Al Hydroxide/Mg Hydroxide (Magnesium Hydrox/Alum Hydrox 30 Ml Oral.Susp) 15 ml PO Q6H PRN PRN Reason: GI UPSET Apixaban (Apixaban 5 Mg Tablet) 5 mg PO BID [facility] Last Admin: 10/27/22 08:33 Dose: 5 mg Artificial Tears (Artificial Tears 15 Ml Drops) 2 drop EYE-BOTH Q6H PRN PRN Reason: Dry Eye(S) Atorvastatin Calcium (Atorvastatin Calcium 40 Mg Tablet) 40 mg PO DAILY [facility] Last Admin: 10/27/22 08:33 Dose: 40 mg Bisacodyl (Bisacodyl 10 Mg Supp.Rect) 10 mg AR DAILY PRN PRN Reason: Constipation Carvedilol (Carvedilol 3.125 Mg Tablet) 3.125 mg PO BID [facility]; Protocol Last Admin: 10/27/22 08:33 Dose: 3.125 mg Docusate Sodium (Docusate Sodium 100 Mg Capsule) 100 mg PO DAILY PRN PRN Reason: Constipation Famotidine (Famotidine 20 Mg Tablet) 20 mg PO DAILY [facility] Last Admin: 10/27/22 08:33 Dose: 20 mg Furosemide (Furosemide 20 Mg Tablet) 60 mg PO BID [facility]; Protocol Last Admin: 10/27/22 08:32 Dose: 60 mg Guaifenesin (Guaifenesin 100 Mg/5 Ml Liquid) 5 ml PO Q4H PRN PRN Reason: Cough Loperamide HCl (Loperamide Hcl 2 Mg Capsule) 2 mg PO Q4H PRN PRN Reason: Allergic Reaction Magnesium Hydroxide (Milk Of Magnesia 30 Ml Oral.Susp) 30 ml PO DAILY PRN PRN Reason: Constipation Naloxone HCl (Naloxone Hcl Nasal 4 Mg [place]) 4 mg NOSTRILALT Q3M PRN PRN Reason: Opiate Reversal Nystatin (Nystatin Cream 15 Gm Tube) 1 appl TOPICAL BID [facility]; Protocol Last Admin: 10/27/22 08:39 Dose: 1 appl Ondansetron HCl (Ondansetron Hcl 4 Mg/2 Ml Vial) 4 mg IVPUSH Q8H PRN PRN Reason: Nausea and Vomiting Sacubitril/Valsartan (Sacubitril/Valsartan 1 Tab Tablet) 1 tab PO BID [facility]; Protocol Last Admin: 10/27/22 08:33 Dose: 1 tab Simethicone (Simethicone 80 Mg Tab.Chew) 80 mg PO Q6H PRN PRN Reason: BLOATING Sodium Biphosphate/Sodium Phosphate (Sodium Phosphate,[place]-Dibasic 133 Ml Enema) 133 ml AR DAILY PRN PRN Reason: Constipation Sodium Chloride (0.9 % Sodium Chloride Flush 3 Ml Syringe) 3 ml IVFLUSH QSHIFT [facility] Last Admin: 10/27/22 07:12 Dose: Not Given Home Medications Medication Instructions Recorded Confirmed Last Taken Type acetaminophen 325 mg tablet 650 mg PO Q6H PRN Abdominal 10/23/22 10/23/22 U nknown History Discomfort apixaban 5 mg tablet (Eliquis) 5 mg PO BID 10/23/22 10/23/22 Unknown History atorvastatin 40 mg tablet 40 mg PO DAILY 10/23/22 10/23/22 Unknown History bisacodyl 10 mg rectal suppository 10 mg AR DAILY PRN Constipation 10/23/22 10/24/22 Unknown History famotidine 20 mg tablet 20 mg PO DAILY 10/23/22 10/23/22 Unknown History guaifenesin 100 mg/5 mL oral syrup 200 mg PO Q4H PRN Cough 10/23/22 10/23/22 Unknown History loperamide 2 mg capsule 2 mg PO Q4H PRN Allergic Reaction 10/23/22 10/23/22 Unknown History magnesium hydroxide 400 mg/5 mL 30 ml PO DAILY PRN Constipation 10/23/22 10/24/22 Unknown History oral suspension (Milk of Magnesia) sacubitril 24 mg-valsartan 26 mg 1 tab PO BID 10/23/22 10/23/22 Unknown History tablet (Entresto) simethicone 80 mg chewable tablet 80 mg PO Q6H PRN BLOATING 10/23/22 10/24/22 Unknown History aluminum-mag hydroxide-simethicone 15 ml PO Q6H PRN GI UPSET 10/24/22 10/24/22 Unknown History 200 mg-200 mg-20 mg/5 mL oral susp carboxymethylcellulose sodium 1 % 2 drp ophthalmic (eye) Q6H PRN Dry 10/24/22 10/24/22 Unknown History eye drops (Artificial Tears Eye(S) (carboxymethylcellulose)) furosemide 20 mg tablet 60 mg PO BID 10/24/22 10/24/22 Unknown History naloxone 4 mg/actuation nasal 4 mg intranasal Q3M PRN Opiate 10/24/22 10/24/22 Unknown History spray (Narcan) Reversal sodium phosphates 19 gram-7 118 ml AR DAILY PRN Constipation 10/24/22 10/24/22 Unknown History gram/118 mL enema (Fleet Enema) Physical Exam Vital Signs: Vital Signs: Last Vital Signs Temp 97.1 F 10/27/22 08:00 Pulse 103 H 10/27/22 08:00 Resp 18 10/27/22 09:08 BP 106/59 L 10/27/22 08:00 Pulse Ox 92 10/27/22 09:23 O2 Del Method Nasal Cannula 10/27/22 09:23 O2 Flow Rate 4 10/27/22 09:23 FiO2 95 10/25/22 18:18 BMI result Body Mass Index 42.3 Const: Other: Moderately obese, with a round face, short and obese neck, General: comfortable, no acute distress (Patient on oxygen supplementation), alert and awake HEENT: Head: Yes normal to inspection General nose exam: No nasal polyps present and No nasal discharge present Face and sinus: Yes sinuses nontender Mouth: oropharynx abnormals (Oropharynx is narrow and crowded, Mallampati scale 4) Throat: Yes posterior oropharynx normal Eyes: General: appearance normal, both eyes and all related structures Neck: Neck: Yes normal visual inspection, Yes no lymphadenopathy, Yes trachea midline, Yes no JVD and Yes other (Neck obese and short) Thyroid: Thyroid normal Chest: Chest palpation & inspection: normal inspection of the chest, normal palpation of entire chest wall and no tenderness Resp: Other: Percussion note is not fully perceptible especially over the lower lobes. Breath sounds are distant, . Especially over the basilar areas No wheezes rhonchi or. Crepitations are heard Cardio: Palpation: PMI not normal (Not palpable) Rate: regular rate Rhythm: abnormal rhythm and other (Atrial fibrillation) Heart sounds: no gallops and no murmurs GI: Palpation (GI): Soft to palpation, nontender, No hepatosplenomegaly present, no masses and Other GI palpation findings present (Abdomen is moderately obese and protuberant) Auscultation: normal bowel sounds Back/Spine/Pelvis: Other: Not examined Skin: General skin exam: no rashes or lesions noted Neuro: Other: Patient is conscious but non-conversant and difficult to assess the mental status Extrem: General: Yes normal to inspection, Yes no clubbing, cyanosis or edema and Yes no calf tenderness Psych: Speech and movement: Normal speech and movement present Results Laboratory Findings 10/27/22 06:03 10/27/22 06:03 ABG, PT/INR, D-dimer: PT/INR, D-dimer PT 16.2 SEC (10.0-13.1) H 10/24/22 23:42 INR 1.4 (0.9-1.1) H 10/24/22 23:42 Abnormal lab findings: Abnormal Labs 10/23/22 10/23/22 10/23/22 20:10 20:10 20:10 RBC Hgb Hct MCHC Immature Gran % (Auto) Lymph % (Auto) 15.7 L [place] % (Auto) Eos % (Auto) Abs Immat Gran (auto) PT 17.0 H INR 1.5 H VBG HCO3 Carbon Dioxide BUN 23 H Random Glucose 141 H Fasting Glucose Calcium Total Bilirubin 1.8 H B-Natriuretic Peptide Total Protein Albumin Ur Specific [place] Ur Leukocyte Esterase Urine WBC 10/23/22 10/23/22 10/24/22 20:10 20:14 06:12 RBC Hgb Hct MCHC Immature Gran % (Auto) Lymph % (Auto) [place] % (Auto) Eos % (Auto) Abs Immat Gran (auto) PT INR VBG HCO3 32 H Carbon Dioxide BUN 20 H Random Glucose Fasting Glucose Calcium Total Bilirubin 1.6 H B-Natriuretic Peptide 237 H Total Protein Albumin Ur Specific [place] Ur Leukocyte Esterase Urine WBC 10/24/22 10/24/22 10/26/22 14:59 23:42 05:41 RBC 4.34 L Hgb 12.6 L Hct 41.0 L MCHC 30.7 L Immature Gran % (Auto) Lymph % (Auto) [place] % (Auto) 14.6 H Eos % (Auto) 4.1 H Abs Immat Gran (auto) PT 16.2 H INR 1.4 H VBG HCO3 Carbon Dioxide BUN Random Glucose Fasting Glucose Calcium Total Bilirubin B-Natriuretic Peptide Total Protein Albumin Ur Specific [place] >= 1.030 H Ur Leukocyte Esterase Moderate (2+) H Urine WBC 11-20 H 10/26/22 10/27/22 10/27/22 05:41 06:03 06:03 RBC Hgb 13.3 L Hct MCHC 30.6 L Immature Gran % (Auto) 0.5 H Lymph % (Auto) 15.9 L [place] % (Auto) 12.0 H Eos % (Auto) 4.4 H Abs Immat Gran (auto) 0.04 H PT INR VBG HCO3 Carbon Dioxide 32 H BUN Random Glucose Fasting Glucose 109 H 108 H Calcium 8.2 L D Total Bilirubin 1.9 H 1.1 H B-Natriuretic Peptide Total Protein 6.0 L 6.2 L Albumin 3.2 L 3.2 L Ur Specific [place] venous bUr Leukocyte Esterase Urine WBC VENOUS BLOOD GASES PH=7.36, PCO2 55 PO2 52 HCO3 32 Microbiology: Microbiology 10/24/22 16:12 Urine clean catch - Urine gordon top Urine Culture - Final 10/23/22 20:27 Blood - Venous Blood Culture - Preliminary No growth after 48 hours. 10/23/22 20:09 Blood - Venous Blood Culture - Preliminary No growth after 48 hours. Diagnostic Findings Chest x-ray: report reviewed and image reviewed CT scan - chest: report reviewed and image reviewed Assessment and Plan (1) Acute respiratory failure with hypoxia: Status: Acute (2) Restrictive lung disease: Status: Acute (3) Hypoventilation: Status: Acute (4) COPD (chronic obstructive pulmonary disease): Status: Acute Plan THE BODY FEATURES OF THIS PATIENT OR SUGGESTIVE OF POSSIBLE HESHAM/HYPOVENTILATION SYNDROME. BLOOD GAS STUDY ON ADMISSION DOES SHOW MILD CO2 RETENTION, WHICH MAY GO ALONG WITH THAT. HE MAY ALSO HAVE RESTRICTIVE LUNG DISEASE DUE TO OBESITY. CT SCAN FINDING SHOWING BRONCHIAL WALL THICKENING AND SOME MUCUS RETENTION , MAY SUGGEST CHRONIC OBSTRUCTIVE PULMONARY DISEASE. HYPOXEMIA IS PROBABLY DUE TO COMBINATION OF THE ABOVE FACTORS. DUE TO HIS OBESITY AND CHANGE IN MENTAL STATUS HE IS NOT ABLE TO DO DEEP BREATHING, SO RESULTING IN SOME DEGREE OF HYPOVENTILATION. HE DOES NOT HAVE CONVINCING EVIDENCE OF ANY ACTIVE PULMONARY EMBOLISM. RECC. IF HIS MENTAL STATUS AND PHYSICAL CONDITION ALLOWS HE SHOULD BE ENCOURAGED TO GET UP AND SIT IN A RECLINER. SHOULD BE ENCOURAGED TO DO DEEP BREATHING EXERCISES AND IF HE CAN USE INCENTIVE SPIROMETRY , HE SHOULD BE ENCOURAGED TO USE THAT. CONTINUE O2 BY NASAL CANNULA TO KEEP O2 SAT JUST BETWEEN 90-92%. BEFORE DISCHARGE WE CAN REPEAT BLOOD GAS STUDY AGAIN. I THINK HE WILL BENEFIT FROM DUONEB UPDRAFTS( Q 6 HOURS WHILE AWAKE ) TO IMPROVE HIS VENTILATION AND TO MOBILIZE THE SECRETIONS. IF AND WHEN FEASIBLE, HE WILL NEED AN IN LAB POLYSOMNOGRAM STUDY AT A LATER DATE. Time Spent With Patient Time: Total time managing care of this patient today ____ minutes. Procedures Date of Service Date of Service: 10/27/22
--- NOTE | 2022-10-27 11:28 | MHC.CM.PN ---
Addendum entered by Michelle Helton 10/27/22 13:08: PTS SON MADE AWARE OF PTS PENDING DC VIA T/C WITH Original Note: PT CLEARED TO DC TODAY BACK TO [facility] CM CALLED THE NURSING MEASUREMENT OPERATOR AT [facility] SHE REQUESTED PT BE SENT BACK AT 1600 HOURS HE WILL BE TRANSPORTED VIA [facility]
[2022-10-27 15:35] VITALS: BP 100/51; PULSE 87; RESP 16; TEMP 36.6; O2SAT 96
== END 2022-10-27 16:35 | disposition skilled nursing facility (03) | DRG 205 ==
LOC: HO.ED 23:50 → HO.EDOVER 23:57 → HO.S3 10-24 18:31
PROVIDERS: Admitting Provider Internal Medicine; Emergency Provider Emergency Medicine; PCP Emergency Medicine; Visit Provider Hospitalist
DX: E66.2 Morbid (severe) obesity with alveolar hypoventilation (principal); J96.01 Acute respiratory failure with hypoxia; Z68.41 Body mass index [BMI] 40.0-44.9, adult; I48.21 Permanent atrial fibrillation; G93.49 Other encephalopathy; F11.21 Opioid dependence, in remission; I35.0 Nonrheumatic aortic (valve) stenosis; Z20.822 Contact with and (suspected) exposure to COVID-19; Z45.018 Encounter for adjustment and management of other part of cardiac pacemaker; Z86.73 Personal history of transient ischemic attack (TIA), and cerebral infarction without residual deficits; Z79.01 Long term (current) use of anticoagulants; Z79.899 Other long term (current) drug therapy
CPT/HCPCS: 36415; 70450; 71045; 71275; 80048; 80053; 80076; 80307; 81001; 82803; 83605; 83690; 83735; 83880; 84484; 85025; 85379; 85610; 85730; 87040; 87086; 87502; 87635; 93005; 93306; 93970; 99221; 99285; J1650; Q9957; Q9967

== ENCOUNTER 2022-11-21 01:38 | Inpatient (IN) | payer MEDICARE, MEDICAID, SELFPAY ==
[2022-11-21] VITALS (11 sets, daily range): BP systolic 87–172; BP diastolic 40–99; PULSE 73–102; RESP 16–28; TEMP 36.5–36.8; O2SAT 83–99; BMI 38.7
--- NOTE | 2022-11-21 | ECG_ITS ---
Test Reason : SOB Blood Pressure : / mmHG Vent. Rate : 084 BPM Atrial Rate : 084 BPM P-R Int : 266 ms QRS Dur : 142 ms QT Int : 476 ms P-R-T Axes : 081 086 100 degrees QTc Int : 562 ms Poor data quality Sinus rhythm with 1st degree A-V block Possible Ventricular-paced rhythm Abnormal ECG When compared with ECG of 23-OCT-2022 19:34, No significant changes seen Referred By: Amilcar Bansal Electronically Signed By:MAGUI OZUNA MD
--- NOTE | ~2022-11-21 | CT_ITS ---
EXAMINATION: CT ANGIOGRAM OF THE CHEST WITH AND WITHOUT CONTRAST (CT PULMONARY ANGIOGRAM FOR PE) CLINICAL INFORMATION: Reason for Exam H/O PE COMPARISON: 10/23/2022 TECHNIQUE: Prior to contrast administration, noncontrast localization images were obtained. Subsequently, multidetector volumetric imaging was performed from the thoracic inlet to below the diaphragms following the administration of 65 mL Omnipaque 350 intravenous contrast. No contrast reaction reported Sagittal, coronal, and MIP oblique sagittal reformatted images were obtained on the CT workstation, uploaded to PACS, and reviewed. This CT examination was performed using dose optimization techniques as appropriate, variously including the following: *Automated exposure control *Adjustment of mA and/or kV according to patient size (this includes techniques or standardized protocols for targeted exams where dose is matched to indication/reason for exam; i.e. extremities or head) *Use of iterative reconstruction technique Total exam dose-length product 472 mGy-cm FINDINGS: QUALITY OF STUDY/CONTRAST BOLUS: Suboptimal. PULMONARY ARTERIES: There is inadequate evaluation of some of the segmental and subsegmental vessels bilaterally due to extensive respiratory motion artifact. Otherwise, no pulmonary embolus is seen. THORACIC AORTA: No aneurysm. Moderate atherosclerotic disease. LUNG: Limited detailed evaluation due to extensive respiratory motion artifact. Mild opacity in the basilar right lower lobe is more suggestive of atelectasis. No additional consolidation is seen. Left-sided pacemaker lead tips extend to the right atrium and right ventricle. PLEURA: Trace right pleural effusion. No pneumothorax. MEDIASTINUM: The visualized thyroid gland is unremarkable. There are subcentimeter mediastinal lymph nodes within the range of normal variation. Borderline cardiomegaly. No pericardial effusion. No evidence of septal bowing or right heart strain. CORONARY ARTERY CALCIFICATION: Present CHEST WALL/AXILLA: No axillary or internal mammary lymphadenopathy. OSSEOUS STRUCTURES: Degenerative changes are noted in the spine. UPPER ABDOMEN: Mild fatty atrophy of the pancreas. There is mild reflux of contrast into the hepatic veins which can be seen with elevated right heart pressures. CT/CT angio chest PE protocol IMPRESSION: 1. Inadequate evaluation of some of the segmental and subsegmental vessels bilaterally due to extensive respiratory motion artifact. Otherwise, no pulmonary embolus identified. 2. Trace right pleural effusion. Mild right basilar opacity is more suggestive of atelectasis. 3. Mild reflux of contrast into the hepatic veins, which can be seen with elevated right heart pressures. VTE: negative.
--- NOTE | ~2022-11-21 | XR_ITS ---
EXAMINATION: XR CHEST CLINICAL INFORMATION: CHF COMPARISON: 10/23/2022 TECHNIQUE: Frontal view of the chest was obtained. FINDINGS: Redemonstrated left-sided pacemaker. Lung volumes are symmetric. No focal consolidation is seen. No evidence of pneumothorax, significant pleural effusion, or overt pulmonary edema. Cardiac size is within normal limits. Calcification is present at the aortic arch. No acute osseous findings are seen. XR/XR chest 1V IMPRESSION: No acute cardiopulmonary findings.
--- NOTE | ~2022-11-21 | XR_ITS ---
EXAMINATION: XR CHEST CLINICAL INFORMATION: Central line placement COMPARISON: 11/21/2022 TECHNIQUE: Frontal view of the chest was obtained. FINDINGS: Left-sided pacemaker redemonstrated. Right IJ central line tip lies in the region of the distal SVC. Lung volumes are symmetric. No focal consolidation is seen. Trace right pleural effusion cannot be excluded. No evidence of pneumothorax. Cardiac size is within normal limits. Calcification is present at the aortic arch. No acute osseous findings are seen. XR/XR chest 1V IMPRESSION: Right IJ central line tip in the region of the distal SVC.
--- NOTE | ~2022-11-21 | XR_ITS ---
EXAMINATION: XR CHEST CLINICAL INFORMATION: Central line placement COMPARISON: 11/21/2022 TECHNIQUE: Frontal view of the chest was obtained. FINDINGS: There is a line overlying the right side of the neck terminating overlying the superior vena cava. There is no pneumothorax. Pacer wires are noted. One overlying the upper left cardiac region and an another overlying the upper cardiac region to the left of midline The left lung is grossly clear. Some increase interstitial markings in the right lung mildly increasing from previous exam. A trace right-sided effusion cannot be excluded. XR/XR chest 1V IMPRESSION: Lines and catheters as described above. Some increase interstitial markings in the right lung. Attention to follow-up. Trace right-sided effusion cannot be excluded
--- NOTE | 2022-11-21 01:52 | ED.SOB ---
HPI - SOB/Dyspnea General Chief Complaint: Upper Respiratory Symptoms Stated Complaint: shortness of breath Time Seen by Provider: 11/21/22 01:52 Source: patient Mode of arrival: ambulatory Limitations: no limitations History of Present Illness HPI Narrative: Patient just admitted [place] [facility] [place] for shortness of breath with history of aortic stenosis with severe cardiomyopathy LVEF 25-30% history of complete heart block status post pacemaker AFib on Eliquis, CVA, depression, pulmonary hypertension came from halfway for increased shortness of breath saturating 83% on 6 L. patient's saturation improved to 96% he sat up Related Data Home Medications Medication Instructions Recorded Confirmed acetaminophen 325 mg tablet 650 mg PO Q6H PRN Abdominal 10/23/22 10/23/22 Discomfort apixaban 5 mg tablet (Eliquis) 5 mg PO BID 10/23/22 10/23/22 atorvastatin 40 mg tablet 40 mg PO DAILY 10/23/22 10/23/22 bisacodyl 10 mg rectal suppository 10 mg MS DAILY PRN Constipation 10/23/22 10/24/22 famotidine 20 mg tablet 20 mg PO DAILY 10/23/22 10/23/22 guaifenesin 100 mg/5 mL oral syrup 200 mg PO Q4H PRN Cough 10/23/22 10/23/22 loperamide 2 mg capsule 2 mg PO Q4H PRN Allergic Reaction 10/23/22 10/23/22 magnesium hydroxide 400 mg/5 mL 30 ml PO DAILY PRN Constipation 10/23/22 10/24/22 oral suspension (Milk of Magnesia) sacubitril 24 mg-valsartan 26 mg 1 tab PO BID 10/23/22 10/23/22 tablet (Entresto) simethicone 80 mg chewable tablet 80 mg PO Q6H PRN BLOATING 10/23/22 10/24/22 aluminum-mag hydroxide-simethicone 15 ml PO Q6H PRN GI UPSET 10/24/22 10/24/22 200 mg-200 mg-20 mg/5 mL oral susp carboxymethylcellulose sodium 1 % 2 drp ophthalmic (eye) Q6H PRN Dry 10/24/22 10/24/22 eye drops (Artificial Tears Eye(S) (carboxymethylcellulose)) furosemide 20 mg tablet 60 mg PO BID 10/24/22 10/24/22 naloxone 4 mg/actuation nasal 4 mg intranasal Q3M PRN Opiate 10/24/22 10/24/22 spray (Narcan) Reversal sodium phosphates 19 gram-7 118 ml MS DAILY PRN Constipation 10/24/22 10/24/22 gram/118 mL enema (Fleet Enema) Previous Rx's Medication Instructions Recorded carvedilol 3.125 mg tablet 3.125 mg PO BID #60 tabs 10/27/22 ipratropium 0.5 mg-albuterol 3 mg 3 ml inhalation Q6H PRN shortness 10/27/22 (2.5 mg base)/3 mL nebulization of breath or wheezing #180 mL soln nystatin 100,000 unit/gram topical 1 appl topical BID #30 grams 10/27/22 cream Allergies Allergy/AdvReac Type Severity Reaction Status Date / Time Unable to Assess Allergy Unverified 10/23/22 19:35 Review of Systems Review of Systems: Yes all other systems are reviewed and are negative PMFSH Past Medical History Medical History Alcohol dependence in remission Aortic valve stenosis Atrial fibrillation Cardiac pacemaker in situ Chronic kidney disease COPD (chronic obstructive pulmonary disease) CVA (cerebral vascular accident) Dementia Depression Heart failure with reduced ejection fraction Hypertension Hypoventilation Pulmonary embolism Pulmonary hypertension Restrictive lung disease Social History Social History Household Members: Other Household Members Other:: skilled nursing Housing: Detention Do you presently have visiting nurse or other home services: No Alcohol intake: never Patient Tobacco Use Status: Never used Tobacco Smoked in Last 30 Days: No Second Hand Smoke Exposure: Yes Use of substances other than those prescribed or required for medical reasons: No Advance Directives: Yes Advance Directives on File: Yes Advance Directives Date on File: 10/23/22 service: No Current occupational status: retired Physical Exam Vital Signs: Vital Signs: Last Vital Signs Temp 98.2 F 11/21/22 01:55 Pulse 85 11/21/22 06:00 Resp 26 H 11/21/22 06:00 BP 104/48 L 11/21/22 06:00 Pulse Ox 90 L 11/21/22 06:00 O2 Del Method Nasal Cannula 11/21/22 06:00 O2 Flow Rate 6 11/21/22 06:00 Oxygen Flow Rate 6 11/21/22 02:39 BMI result Body Mass Index 38.7 Appearance: Alert. Oriented X2. In mild distress Eyes: No pallor/ icterus ENT: Pharynx normal. Oral Mucosa moist Neck: Normal inspection. Neck supple. CVS: Normal heart rate and rhythm. Pulses normal. Respiratory: No respiratory distress. Equal air entry bilateral, bilateral rales Abdomen: Soft and nontender. Bowel sounds are present, no mass palpable, no CVA tenderness Skin: Skin warm and dry. Normal skin color. Normal skin turgor. Extremities 1 + lower extremity edema. No calf tenderness Neuro: Oriented X 3. Medications Administered Discontinued Medications Generic Name Dose Route Start Last Admin Trade Name Freq PRN Reason Stop Dose Admin Furosemide 40 mg 11/21/22 02:08 11/21/22 02:38 Furosemide 40 Mg/4 Ml Vial IVPUSH 11/21/22 02:09 40 mg ONCE ONE Administration Protocol Iohexol 65 ml 11/21/22 05:46 11/21/22 05:47 Iohexol 350 Mg/Ml 100 Ml Infus..Btl IV 11/21/22 05:47 65 ml ONCE ONE Administration Medical Decision Making Medical Decision Making [facility] Narrative: Patient with acute hypoxia etiology likely CHF and right ventricular heart failure CTA chest negative for PE no pneumonia or significant pleural effusion Differential Diagnosis Pneumonia/CHF/acute VA/acute PE Consult Healthcare Provider Management of the patient was discussed with: Hospitalist Lab Data [facility] Lab Attestation statement: I reviewed the patient's lab results. 11/21/22 02:40 11/21/22 02:40 Labs: Lab Results 11/21/22 11/21/22 11/21/22 Range/Units 02:40 02:40 02:40 WBC 9.6 (4.8-10.8) X10*3/uL RBC 4.40 L (4.60-5.80) X10*6/uL Hgb 12.6 L (14.0-18.0) g/dl Hct 41.5 L (42.0-52.0) % MCV 94.3 (80.0-98.0) fL MCH 28.6 (27.0-33.0) pg MCHC 30.4 L (31.0-36.0) g/dl RDW 13.7 (11.0-16.0) % Plt Count 203 (160-400) X10*3/uL MPV 9.8 (9.4-12.4) fL Immature Gran % (Auto) 0.4 (0.0-0.4) % Neut % (Auto) 74.8 H (45-73) % Lymph % (Auto) 9.4 L (20-40) % [place] % (Auto) 13.6 H (2-11) % Eos % (Auto) 1.6 (0-4) % Baso % (Auto) 0.2 (0-2) % Lymph # (Auto) 0.9 L (1.2-4.9) X10*3/uL [place] # (Auto) 1.3 H (0.1-1.2) X10*3/uL Eos # (Auto) 0.2 (0.0-0.4) X10*3/uL Baso # (Auto) 0.0 (0.0-0.2) X10*3/uL Abs Immat Gran (auto) 0.04 H (0.00-0.03) X10*3/uL Absolute Neuts (auto) 7.2 (2.0-8.3) x10*3/uL Absolute Nucleated RBC 0.000 (0.0-0.012) X10*3/uL Nucleated RBC % (auto) 0.0 (0.0-0.2) /100WBC PT (10.0-13.1) SEC INR (0.9-1.1) VBG pH (7.32-7.43) VBG pCO2 mmHg VBG pO2 mmHg VBG HCO3 (22-26) mmol/L VBG O2 Saturation % VBG Base Excess mmol/L Sodium 139 (135-145) mmol/L Potassium 4.9 D (3.3-5.1) mmol/L Chloride 98 (96-108) mmol/L Carbon Dioxide 32 H (22-29) mmol/L Anion Gap 14 (12-20) BUN 41 H (9-16) mg/dL Creatinine 1.24 (0.5-1.4) mg/dL Estim Creat Clear Calc 42.5 Estimated GFR 56 Random Glucose 100 (60-115) mg/dL Calcium 8.7 (8.4-10.2) mg/dL Magnesium 2.5 (1.6-2.6) mg/dL Total Bilirubin 1.3 H (0.0-1.0) mg/dL AST 69 H (5-37) U/L ALT 23 (0-40) U/L Alkaline Phosphatase 69 (39-117) U/L Troponin I High Sens (<3.5-35.0) ng/L B-Natriuretic Peptide 1965 H (<100) pg/mL Total Protein 6.7 (6.5-8.0) g/dL Albumin 3.4 L (3.5-5.0) g/dL COVID-19 (RACHEL) (Negative) COVID-19 Clin Com 11/21/22 11/21/22 11/21/22 Range/Units 02:40 03:15 03:16 WBC (4.8-10.8) X10*3/uL RBC (4.60-5.80) X10*6/uL Hgb (14.0-18.0) g/dl Hct (42.0-52.0) % MCV (80.0-98.0) fL MCH (27.0-33.0) pg MCHC (31.0-36.0) g/dl RDW (11.0-16.0) % Plt Count (160-400) X10*3/uL MPV (9.4-12.4) fL Immature Gran % (Auto) (0.0-0.4) % Neut % (Auto) (45-73) % Lymph % (Auto) (20-40) % [place] % (Auto) (2-11) % Eos % (Auto) (0-4) % Baso % (Auto) (0-2) % Lymph # (Auto) (1.2-4.9) X10*3/uL [place] # (Auto) (0.1-1.2) X10*3/uL Eos # (Auto) (0.0-0.4) X10*3/uL Baso # (Auto) (0.0-0.2) X10*3/uL Abs Immat Gran (auto) (0.00-0.03) X10*3/uL Absolute Neuts (auto) (2.0-8.3) x10*3/uL Absolute Nucleated RBC (0.0-0.012) X10*3/uL Nucleated RBC % (auto) (0.0-0.2) /100WBC PT (10.0-13.1) SEC INR (0.9-1.1) VBG pH 7.46 H (7.32-7.43) VBG pCO2 53 mmHg VBG pO2 64 mmHg VBG HCO3 38 H (22-26) mmol/L VBG O2 Saturation 92.0 % VBG Base Excess 12.7 mmol/L Sodium (135-145) mmol/L Potassium (3.3-5.1) mmol/L Chloride (96-108) mmol/L Carbon Dioxide (22-29) mmol/L Anion Gap (12-20) BUN (9-16) mg/dL Creatinine (0.5-1.4) mg/dL Estim Creat Clear Calc Estimated GFR Random Glucose (60-115) mg/dL Calcium (8.4-10.2) mg/dL Magnesium (1.6-2.6) mg/dL Total Bilirubin (0.0-1.0) mg/dL AST (5-37) U/L ALT (0-40) U/L Alkaline Phosphatase (39-117) U/L Troponin I High Sens > 3600.0 H* D (<3.5-35.0) ng/L B-Natriuretic Peptide (<100) pg/mL Total Protein (6.5-8.0) g/dL Albumin (3.5-5.0) g/dL COVID-19 (RACHEL) Negative (Negative) COVID-19 Clin Com See Note 11/21/22 Range/Units 03:24 WBC (4.8-10.8) X10*3/uL RBC (4.60-5.80) X10*6/uL Hgb (14.0-18.0) g/dl Hct (42.0-52.0) % MCV (80.0-98.0) fL MCH (27.0-33.0) pg MCHC (31.0-36.0) g/dl RDW (11.0-16.0) % Plt Count (160-400) X10*3/uL MPV (9.4-12.4) fL Immature Gran % (Auto) (0.0-0.4) % Neut % (Auto) (45-73) % Lymph % (Auto) (20-40) % [place] % (Auto) (2-11) % Eos % (Auto) (0-4) % Baso % (Auto) (0-2) % Lymph # (Auto) (1.2-4.9) X10*3/uL [place] # (Auto) (0.1-1.2) X10*3/uL Eos # (Auto) (0.0-0.4) X10*3/uL Baso # (Auto) (0.0-0.2) X10*3/uL Abs Immat Gran (auto) (0.00-0.03) X10*3/uL Absolute Neuts (auto) (2.0-8.3) x10*3/uL Absolute Nucleated RBC (0.0-0.012) X10*3/uL Nucleated RBC % (auto) (0.0-0.2) /100WBC PT 24.9 H (10.0-13.1) SEC INR 2.1 H (0.9-1.1) VBG pH (7.32-7.43) VBG pCO2 mmHg VBG pO2 mmHg VBG HCO3 (22-26) mmol/L VBG O2 Saturation % VBG Base Excess mmol/L Sodium (135-145) mmol/L Potassium (3.3-5.1) mmol/L Chloride (96-108) mmol/L Carbon Dioxide (22-29) mmol/L Anion Gap (12-20) BUN (9-16) mg/dL Creatinine (0.5-1.4) mg/dL Estim Creat Clear Calc Estimated GFR Random Glucose (60-115) mg/dL Calcium (8.4-10.2) mg/dL Magnesium (1.6-2.6) mg/dL Total Bilirubin (0.0-1.0) mg/dL AST (5-37) U/L ALT (0-40) U/L Alkaline Phosphatase (39-117) U/L Troponin I High Sens (<3.5-35.0) ng/L B-Natriuretic Peptide (<100) pg/mL Total Protein (6.5-8.0) g/dL Albumin (3.5-5.0) g/dL COVID-19 (RACHEL) (Negative) COVID-19 Clin Com Independent Interpretation I performed an independent interpretation of an: EKG Interpretation: Normal sinus rhythm with heart rate of 84 beats per minute RBBB no acute ST elevation no acute ischemia Radiology Impression Discussion of test interpretation with radiology: I have reviewed the radiologist's reading. Radiologist Impression: CT/CT angio chest PE protocol IMPRESSION: 1.? Inadequate evaluation of some of the segmental and subsegmental vessels bilaterally due to extensive respiratory motion artifact. Otherwise, no pulmonary embolus identified. 2.? Trace right pleural effusion. Mild right basilar opacity is more suggestive of atelectasis. 3.? Mild reflux of contrast into the hepatic veins, which can be seen with elevated right heart pressures. ? Procedures Central Line Placement Right IJ: Time Out Performed: Yes Patient Placed on Monitor/Pulse Ox: Yes MD Prep: mask, gown and gloves Central Line Prep: Chlorhexidine scrub Local Anesthetic: lidocaine 1% Amount of anesthesia used (mL): 4 Ultrasound Used for Placement: Yes Central Line Lumen Inserted: triple Post Procedure: sutured in place, good blood return, all ports aspirated, flushed, capped and sterile dressing applied Post Procedure X-Ray: tip of catheter in good position and no pneumothorax seen Patient Tolerated Procedure: well Complications: none Discharge Plan Discharge Clinical Impression: Acute respiratory failure with hypoxia, Non-ST elevated myocardial infarction (non-STEMI), Congestive heart failure Patient Disposition: Admitted As Inpatient
--- NOTE | 2022-11-21 02:05 | PC.NURSE ---
We did not receive paperwork for the pt. I called [facility] who stated they sent a red folder with all of his information. Called [facility] to see if the crew still has paperwork.Waiting to hear back
[2022-11-21] MEDS: Furosemide 40 MG/4 ML VIAL IVPUSH (02:38)
[2022-11-21 02:44] LABS: MANUAL DIFF FLAG NO
[2022-11-21 02:45] LABS: Basophils Percent Auto 0.2 % (0-2); Eosinophils Absolute Auto 0.2 X10*3/uL (0.0-0.4); Eosinophils Percent Auto 1.6 % (0-4); Hematocrit 41.5 % (42.0-52.0); Hemoglobin 12.6 g/dl (14.0-18.0); Imm Gran Abs Auto 0.04 X10*3/uL (0.00-0.03); Imm Gran Pct Auto 0.4 % (0.0-0.4); Lymphocytes Absolute Auto 0.9 X10*3/uL (1.2-4.9); Lymphocytes Percent Auto 9.4 % (20-40); Mean Corpuscular HGB Conc 30.4 g/dl (31.0-36.0); Mean Corpuscular Hemoglobin 28.6 pg (27.0-33.0); Mean Corpuscular Volume 94.3 fL (80.0-98.0); Mean Platelet Volume 9.8 fL (9.4-12.4); Monocytes Absolute Auto 1.3 X10*3/uL (0.1-1.2); Monocytes Percent Auto 13.6 % (2-11); Neutrophils Absolute Auto 7.2 x10*3/uL (2.0-8.3); Neutrophils Percent Auto 74.8 % (45-73); Platelet Count 203 X10*3/uL (160-400); Red Cell Distribution Width 13.7 % (11.0-16.0); White Blood Count 9.6 X10*3/uL (4.8-10.8)
[2022-11-21 03:00] LABS: COVID-19 Test Negative (Negative); IDNOW Serial# 08D9AD1C
[2022-11-21 03:07] LABS: Alanine Aminotransferase 23 U/L (0-40); Albumin Level 3.4 g/dL (3.5-5.0); Alkaline Phosphatase 69 U/L (39-117); Anion Gap 14 (12-20); Aspartate Amino Transferase 69 U/L (5-37); Bilirubin Total 1.3 mg/dL (0.0-1.0); Blood Urea Nitrogen 41 mg/dL (9-16); Calcium 8.7 mg/dL (8.4-10.2); Carbon Dioxide 32 mmol/L (22-29); Chloride 98 mmol/L (96-108); Creatinine Clr Calc Pharmacy 42.5; Estimated Glomerular Filt Rate 56; Glucose Random 100 mg/dL (60-115); Magnesium 2.5 mg/dL (1.6-2.6); Potassium 4.9 mmol/L (3.3-5.1); Sodium 139 mmol/L (135-145); Total Protein 6.7 g/dL (6.5-8.0)
[2022-11-21 03:10] LABS: B Type Natriuretic Peptide 1965 pg/mL (<100)
[2022-11-21 03:22] LABS: Venous Blood Gas Refer to POC result
[2022-11-21 03:23] LABS: VBG Base Excess 12.7 mmol/L; VBG HCO3 38 mmol/L (22-26); VBG pCO2 53 mmHg; VBG pH 7.46 (7.32-7.43); VBG pO2 64 mmHg
[2022-11-21 03:37] LABS: INTERNATIONAL NORM RATIO 2.1 (0.9-1.1); Prothrombin Time 24.9 SEC (10.0-13.1)
[2022-11-21 03:49] LABS: Troponin-I High Sensitivity > 3600.0 ng/L (<3.5-35.0)
[2022-11-21] MEDS: iohexoL 350 MG/ML 100 ML INFUS..BTL 65 ML IV (05:47)
--- NOTE | 2022-11-21 06:03 | PC.NURSE ---
Pt had an episode of incontinence. Pt was cleaned and repositioned in bed. Pt O2 noteed to be low, I turned O2 up to 6 LPM via NC, O2 is increasing to 90's. Pt is awake and alert, oriented to person and place.
--- NOTE | 2022-11-21 11:25 | PHA.MEDREC ---
Pharmacy Consult ? Medication Reconciliation Pharmacy has completed the medication reconciliation. Med rec was complete using list provided by [facility]
--- NOTE | 2022-11-21 11:51 | PM.CNCAR ---
History of Present Illness History of Present Illness Date of Service: 11/21/22 Requesting physician: Tamiko Bonilla Consult reason: congestive heart failure Chief complaint: hypoxia Narrative: I was consulted to see David in cardiology consultation today for acute respiratory failure with hypoxemia. Patient is a poor historian history mostly obtained from the chart. Patient was [facility] from [facility] because of shortness of breath and hypoxemia. When he came to the Emergency was noted to be hypoxic and elevated BNP and findings suggestive of heart failure. He was then put on BiPAP with improvement in his oxygenation. Subsequently troponin this morning shows troponin of greater than 3600. When I asked him why he came to the Emergency was not able to provide me are good answer and says that he was not feeling well and may be he says his lungs of full of fluid. He was recently admitted to the hospital and discharged to [facility] facility. He was admitted with acute respiratory failure again at that time and was initially admitted to ICU. Takes maker was evaluated and he was noted to have normally functioning pacemaker. Chest x-ray was suggestive at that time of heart failure. Echocardiogram showed LVEF of about 30% with aortic stenosis severity difficult to obtain. EKG done now shows normal sinus rhythm with paced rhythm unchanged from before. Review of Systems Review of Systems: Yes Unobtainable due to mental condition PMFSH Past Medical History Medical History Alcohol dependence in remission Aortic valve stenosis Atrial fibrillation Cardiac pacemaker in situ Chronic kidney disease COPD (chronic obstructive pulmonary disease) CVA (cerebral vascular accident) Dementia Depression Heart failure with reduced ejection fraction Hypertension Hypoventilation Pulmonary embolism Pulmonary hypertension Restrictive lung disease Social History Social History Household Members: Other Household Members Other:: half-way Housing: [facility] Do you presently have visiting nurse or other home services: No Alcohol intake: never Patient Tobacco Use Status: Never used Tobacco Smoked in Last 30 Days: No Second Hand Smoke Exposure: Yes Use of substances other than those prescribed or required for medical reasons: No Advance Directives: Yes Advance Directives on File: Yes Advance Directives Date on File: 10/23/22 service: No Current occupational status: retired Meds Allergies Allergy/AdvReac Type Severity Reaction Status Date / Time Unable to Assess Allergy Unverified 10/23/22 19:35 Active Medications: Current Medications Acetaminophen (Acetaminophen 325 Mg Tablet) 650 mg PO Q6H PRN PRN Reason: Pain, Mild (Pain Scale 1-3) Al Hydroxide/Mg Hydroxide (Magnesium Hydrox/Alum Hydrox 30 Ml Oral.Susp) 15 ml PO Q6H PRN PRN Reason: GI UPSET Apixaban (Apixaban 5 Mg Tablet) 5 mg PO BID [facility] Bisacodyl (Bisacodyl 10 Mg Supp.Rect) 10 mg [place] DAILY PRN PRN Reason: Constipation Carvedilol (Carvedilol 3.125 Mg Tablet) 3.125 mg PO BID [facility]; Protocol Famotidine (Famotidine 20 Mg Tablet) 20 mg PO DAILY [facility] Sodium Chloride (Ns) 500 mls @ 100 mls/hr IVCONT .Q5H [facility] Stop: 11/21/22 16:44 Loperamide HCl (Loperamide Hcl 2 Mg Capsule) 2 mg PO Q4H PRN PRN Reason: Diarrhea Ondansetron HCl (Ondansetron Hcl 4 Mg/2 Ml Vial) 4 mg IVPUSH Q8H PRN PRN Reason: Nausea and Vomiting Sodium Chloride (0.9 % Sodium Chloride Flush 3 Ml Syringe) 3 ml IVFLUSH QSHIFT [facility] Home Medications Medication Instructions Recorded Confirmed Last Taken Type apixaban 5 mg tablet (Eliquis) 5 mg PO BID 10/23/22 11/21/22 Unknown History bisacodyl 10 mg rectal suppository 10 mg [place] DAILY PRN Constipation 10/23/22 11/21/22 Unknown History famotidine 20 mg tablet 20 mg PO DAILY 10/23/22 11/21/22 Unknown History guaifenesin 100 mg/5 mL oral syrup 200 mg PO Q4H PRN Cough 10/23/22 11/21/22 Unknown History loperamide 2 mg capsule 2 mg PO Q4H PRN Diarrhea 10/23/22 11/21/22 Unknown History magnesium hydroxide 400 mg/5 mL 30 ml PO DAILY PRN Constipation 10/23/22 11/21/22 Unknown History oral suspension (Milk of Magnesia) sacubitril 24 mg-valsartan 26 mg 1 tab PO BID 10/23/22 11/21/22 Unknown History tablet (Entresto) aluminum-mag hydroxide-simethicone 15 ml PO Q6H PRN GI UPSET 10/24/22 11/21/22 Unknown History 200 mg-200 mg-20 mg/5 mL oral susp furosemide 20 mg tablet 40 mg PO BID 10/24/22 11/21/22 Unknown History naloxone 4 mg/actuation nasal 4 mg intranasal Q3M PRN Opiate 10/24/22 11/21/22 Unknown History spray (Narcan) Reversal sodium phosphates 19 gram-7 118 ml [place] DAILY PRN Constipation 10/24/22 11/21/22 Unknown History gram/118 mL enema (Fleet Enema) sodium chloride 0.65 % nasal spray 2 spray intranasal Q4H 11/21/22 11/21/22 Unknown History aerosol (Saline Nasal) Physical Exam Vital Signs: Vital Signs: Last Vital Signs Temp 98.2 F 11/21/22 01:55 Pulse 78 11/21/22 09:05 Resp 25 H 11/21/22 11:16 BP 87/67 L 11/21/22 09:05 Pulse Ox 90 L 11/21/22 09:05 O2 Del Method Nasal Cannula 11/21/22 09:05 O2 Flow Rate 5 11/21/22 09:05 Oxygen Flow Rate 6 11/21/22 02:39 BMI result Body Mass Index 38.7 Const: General: in distress severe and respiratory and ill appearing Nutritional Appearance: obese HEENT: Head: Yes normocephalic and Yes atraumatic Neck: Neck: Yes trachea midline, Yes supple and Yes other (Difficult to evaluate JVD) Resp: Effort & Inspection: respiratory distress Auscultation: crackles and diminished lung sounds Cardio: Rate: regular rate Rhythm: regular rhythm Heart sounds: S1 normal heart sound present, S2 normal heart sound present, no click, no gallops and Other heart sounds present (Cannot appreciate murmur suggestive severe aortic stenosis) GI: Auscultation: normal bowel sounds Skin: General skin exam: no rashes or lesions noted Extrem: General: Yes no clubbing, cyanosis or edema Objective Labs and Meds 11/21/22 02:40 11/21/22 02:40 Lab results: Laboratory Results - last 24 hr 11/21/22 11/21/22 11/21/22 02:40 02:40 02:40 WBC 9.6 RBC 4.40 L Hgb 12.6 L Hct 41.5 L MCV 94.3 MCH 28.6 MCHC 30.4 L RDW 13.7 Plt Count 203 MPV 9.8 Immature Gran % (Auto) 0.4 Neut % (Auto) 74.8 H Lymph % (Auto) 9.4 L [place] % (Auto) 13.6 H Eos % (Auto) 1.6 Baso % (Auto) 0.2 Lymph # (Auto) 0.9 L [place] # (Auto) 1.3 H Eos # (Auto) 0.2 Baso # (Auto) 0.0 Abs Immat Gran (auto) 0.04 H Absolute Neuts (auto) 7.2 Absolute Nucleated RBC 0.000 Nucleated RBC % (auto) 0.0 PT INR VBG pH VBG pCO2 VBG pO2 VBG HCO3 VBG O2 Saturation VBG Base Excess Sodium 139 Potassium 4.9 D Chloride 98 Carbon Dioxide 32 H Anion Gap 14 BUN 41 H Creatinine 1.24 Estim Creat Clear Calc 42.5 Estimated GFR 56 Random Glucose 100 Calcium 8.7 Magnesium 2.5 Total Bilirubin 1.3 H AST 69 H ALT 23 Alkaline Phosphatase 69 Troponin I High Sens B-Natriuretic Peptide 1965 H Total Protein 6.7 Albumin 3.4 L COVID-19 (RACHEL) COVID-[employer] 11/21/22 11/21/22 11/21/22 02:40 03:15 03:16 WBC RBC Hgb Hct MCV MCH MCHC RDW Plt Count MPV Immature Gran % (Auto) Neut % (Auto) Lymph % (Auto) [place] % (Auto) Eos % (Auto) Baso % (Auto) Lymph # (Auto) [place] # (Auto) Eos # (Auto) Baso # (Auto) Abs Immat Gran (auto) Absolute Neuts (auto) Absolute Nucleated RBC Nucleated RBC % (auto) PT INR VBG pH 7.46 H VBG pCO2 53 VBG pO2 64 VBG HCO3 38 H VBG O2 Saturation 92.0 VBG Base Excess 12.7 Sodium Potassium Chloride Carbon Dioxide Anion Gap BUN Creatinine Estim Creat Clear Calc Estimated GFR Random Glucose Calcium Magnesium Total Bilirubin AST ALT Alkaline Phosphatase Troponin I High Sens > 3600.0 H* D B-Natriuretic Peptide Total Protein Albumin COVID-19 (RACHEL) Negative COVID-19 Spare Change Payments Com See Note 11/21/22 03:24 WBC RBC Hgb Hct MCV MCH MCHC RDW Plt Count MPV Immature Gran % (Auto) Neut % (Auto) Lymph % (Auto) [place] % (Auto) Eos % (Auto) Baso % (Auto) Lymph # (Auto) [place] # (Auto) Eos # (Auto) Baso # (Auto) Abs Immat Gran (auto) Absolute Neuts (auto) Absolute Nucleated RBC Nucleated RBC % (auto) PT 24.9 H INR 2.1 H VBG pH VBG pCO2 VBG pO2 VBG HCO3 VBG O2 Saturation VBG Base Excess Sodium Potassium Chloride Carbon Dioxide Anion Gap BUN Creatinine Estim Creat Clear Calc Estimated GFR Random Glucose Calcium Magnesium Total Bilirubin AST ALT Alkaline Phosphatase Troponin I High Sens B-Natriuretic Peptide Total Protein Albumin COVID-19 (RACHEL) COVID-19 Clin Com Imaging Radiologist's impression: Impressions Chest X-Ray 11/21/22 02:12 IMPRESSION: No acute cardiopulmonary findings. Chest X-Ray 11/21/22 05:32 IMPRESSION: Right IJ central line tip in the region of the distal SVC. Chest CTA 11/21/22 05:53 IMPRESSION: 1. Inadequate evaluation of some of the segmental and subsegmental vessels bilaterally due to extensive respiratory motion artifact. Otherwise, no pulmonary embolus identified. 2. Trace right pleural effusion. Mild right basilar opacity is more suggestive of atelectasis. 3. Mild reflux of contrast into the hepatic veins, which can be seen with elevated right heart pressures. VTE: negative. Assessment and Plan (1) Acute respiratory failure with hypoxia: Status: Acute Acute respiratory failure in this elderly gentleman appears to be acute heart failure although clinically this is difficult to say but he has elevated BNP and low EF and elevated troponin more likely that he has ischemic heart failure. This CT finding of elevated right heart pressures. Echocardiogram is been requested but his prior echocardiogram within suboptimal due to his body habitus. Can pursue that. However it appears that this most likely is acute ischemic heart failure and he now has low blood pressure and overall prognosis is poor and guarded. Continue supportive care. I will continue diurese as much as blood pressure allows. Would hold off on Entresto and carvedilol therapy given his low blood pressure. Given his elevated troponin suggestive underlying NSTEMI although could be also a STEMI as he has underlying paced rhythm which is difficult to assess on the basis of EKG and would start him on IV heparin. Hold Eliquis. Continue supportive care and BiPAP therapy. Consider ICU consultation. However patient is DNR and DNI. Please discussed with healthcare proxy that overall prognosis is poor and should consider palliative care. Will follow with you. Thank you for allowing me to partake in his care Time Spent With Patient Time: Total time managing care of this patient today ____ minutes. Procedures Date of Service Date of Service: 11/21/22
[2022-11-21] MEDS: 0.9 % Sodium Chloride 500 ML 100 ML IVCONT (12:11)
[2022-11-21 12:32] LABS: Troponin-I High Sensitivity > 3600.0 ng/L (<3.5-35.0)
--- NOTE | 2022-11-21 12:39 | W.PM.CCCN ---
History of Present Illness Data of Consult Service Date: 11/21/22 Requesting physician: Tamiko Bonlila Primary Care Provider: HELDER SIMS Reason for consult: hypoxemia, heart failure, hypotension 82-year-old gentleman in DNR/ DNI code status, resident of nursing facility, with underlying history of dementia, CVA, AFib, aortic valve stenosis of unclear severity, systolic heart failure with EF of 25-30%, complete heart block status post pacemaker, recent admission to [facility] for hypoxemia admitted on 11/21/2022 for dyspnea, hypoxemia, NSTEMI, and acute on chronic systolic heart failure. Upon admission patient was placed on CPAP it cm of water FiO2 40% with O2 saturation 97%. Initially he was given Lasix 40 mg IV with drop in his systolic blood pressure to 80s, which later was reversed by administering a fluid bolus of 500 cc of normal saline with improvement of systolic blood pressure to above 100 and MAP above 65. Patient has been evaluated by Cardiology service. At this time he is comfortable on CPAP and does not complain of any pain. Review of Systems Review of Systems: Yes Unobtainable due to mental condition [facility] Past Medical History Medical History (Updated 11/21/22 @ 12:45 by Mukesh Andres MD) Alcohol dependence in remission Aortic valve stenosis Atrial fibrillation Cardiac pacemaker in situ Chronic kidney disease COPD (chronic obstructive pulmonary disease) CVA (cerebral vascular accident) Dementia Depression Heart failure with reduced ejection fraction Hypertension Hypoventilation Pulmonary embolism Pulmonary hypertension Restrictive lung disease Social History Social History Household Members: Other Household Members Other:: [facility] Housing: Correction Do you presently have visiting nurse or other home services: No Alcohol intake: never Patient Tobacco Use Status: Never used Tobacco Smoked in Last 30 Days: No Second Hand Smoke Exposure: Yes Use of substances other than those prescribed or required for medical reasons: No Advance Directives: Yes Advance Directives on File: Yes Advance Directives Date on File: 10/23/22 service: No Current occupational status: retired Meds Allergies Allergy/AdvReac Type Severity Reaction Status Date / Time Unable to Assess Allergy Unverified 10/23/22 19:35 Active Medications: Current Medications Acetaminophen (Acetaminophen 325 Mg Tablet) 650 mg PO Q6H PRN PRN Reason: Pain, Mild (Pain Scale 1-3) Al Hydroxide/Mg Hydroxide (Magnesium Hydrox/Alum Hydrox 30 Ml Oral.Susp) 15 ml PO Q6H PRN PRN Reason: GI UPSET Atorvastatin Calcium (Atorvastatin Calcium 40 Mg Tablet) 40 mg PO DAILY [facility] Bisacodyl (Bisacodyl 10 Mg Supp.Rect) 10 mg [place] DAILY PRN PRN Reason: Constipation Famotidine (Famotidine 20 Mg Tablet) 20 mg PO DAILY [facility] Albumin Human (Kedbumin 25 %) 100 mls @ 100 mls/hr IV Q6H [facility] Stop: 11/22/22 07:29 Loperamide HCl (Loperamide Hcl 2 Mg Capsule) 2 mg PO Q4H PRN PRN Reason: Diarrhea Ondansetron HCl (Ondansetron Hcl 4 Mg/2 Ml Vial) 4 mg IVPUSH Q8H PRN PRN Reason: Nausea and Vomiting Sodium Chloride (0.9 % Sodium Chloride Flush 3 Ml Syringe) 3 ml IVFLUSH QSHIFT [facility] Home Medications Medication Instructions Recorded Confirmed Last Taken Type apixaban 5 mg tablet (Eliquis) 5 mg PO BID 10/23/22 11/21/22 Unknown History bisacodyl 10 mg rectal suppository 10 mg [place] DAILY PRN Constipation 10/23/22 11/21/22 Unknown History famotidine 20 mg tablet 20 mg PO DAILY 10/23/22 11/21/22 Unknown History guaifenesin 100 mg/5 mL oral syrup 200 mg PO Q4H PRN Cough 10/23/22 11/21/22 Unknown History loperamide 2 mg capsule 2 mg PO Q4H PRN Diarrhea 10/23/22 11/21/22 Unknown History magnesium hydroxide 400 mg/5 mL 30 ml PO DAILY PRN Constipation 10/23/22 11/21/22 Unknown History oral suspension (Milk of Magnesia) sacubitril 24 mg-valsartan 26 mg 1 tab PO BID 10/23/22 11/21/22 Unknown History tablet (Entresto) aluminum-mag hydroxide-simethicone 15 ml PO Q6H PRN GI UPSET 10/24/22 11/21/22 Unknown History 200 mg-200 mg-20 mg/5 mL oral susp furosemide 20 mg tablet 40 mg PO BID 10/24/22 11/21/22 Unknown History naloxone 4 mg/actuation nasal 4 mg intranasal Q3M PRN Opiate 10/24/22 11/21/22 Unknown History spray (Narcan) Reversal sodium phosphates 19 gram-7 118 ml [place] DAILY PRN Constipation 10/24/22 11/21/22 Unknown History gram/118 mL enema (Fleet Enema) sodium chloride 0.65 % nasal spray 2 spray intranasal Q4H 11/21/22 11/21/22 Unknown History aerosol (Saline Nasal) Physical Exam Vital Signs: Vital Signs: Last Vital Signs Temp 98.2 F 11/21/22 01:55 Pulse 78 11/21/22 09:05 Resp 25 H 11/21/22 11:16 BP 87/67 L 11/21/22 09:05 Pulse Ox 90 L 11/21/22 09:05 O2 Del Method Nasal Cannula 11/21/22 09:05 O2 Flow Rate 5 11/21/22 09:05 Oxygen Flow Rate 6 11/21/22 02:39 BMI result Body Mass Index 38.7 Const: General: no acute distress, alert and awake Eyes: Sclerae: sclerae normal EOM: EOMs intact bilaterally Neck: Neck: Yes no lymphadenopathy, Yes trachea midline and Yes supple Resp: Effort & Inspection: normal respiratory effort and no respiratory distress Auscultation: crackles ( Mild bilateral) Cardio: Rate: regular rate Rhythm: regular rhythm Heart sounds: no gallops, no murmurs and no rubs GI: Palpation (GI): Soft to palpation and Other GI palpation findings present ( Nontender) Auscultation: normal bowel sounds Extrem: General: No clubbing, No cyanosis and Yes edema ( 1+ bilateral) Results Labs 11/21/22 02:40 11/21/22 02:40 Labs: Short CBC 11/21/22 Range/Units 02:40 WBC 9.6 (4.8-10.8) X10*3/uL Hgb 12.6 L (14.0-18.0) g/dl Hct 41.5 L (42.0-52.0) % Plt Count 203 (160-400) X10*3/uL BMP 11/21/22 02:40 Sodium 139 Potassium 4.9 D Chloride 98 Carbon Dioxide 32 H BUN 41 H Creatinine 1.24 Calcium 8.7 Liver Function 11/21/22 Range/Units 02:40 Total Bilirubin 1.3 H (0.0-1.0) mg/dL AST 69 H (5-37) U/L ALT 23 (0-40) U/L Alkaline Phosphatase 69 (39-117) U/L Albumin 3.4 L (3.5-5.0) g/dL Assessment and Plan (1) Acute respiratory failure with hypoxia: Status: Acute (2) Non-ST elevated myocardial infarction (non-STEMI): Status: Acute (3) Acute on chronic systolic heart failure: Status: Acute (4) Aortic valve stenosis: Status: Acute Plan Impression: 82-year-old gentleman with underlying known systolic heart failure with EF of 25 230%, AFib aortic stenosis, dementia/CVA admitted for acute on chronic systolic heart failure exacerbation with NSTEMI and resultant acute on chronic hypoxic respiratory failure. BNP elevated significantly over baseline. Troponins are not helpful as cut off is too low. Now on CPAP 8cm/40%. No CO2 retention. Recommendations: Titrate from CPAP down to high-flow to maintain possibility of p.o. intake and preserve benefit of PEEP in acute decompensated heart failure/NSTEMI. Consider obtaining repeat echocardiogram to evaluate for changes and has action fraction / wall motion abnormality/aortic valve stenosis. At this time, patient does not require pressor or ventilatory support, however may benefit from advanced heart failure evaluation including possibility of left-sided catheterization and/or support, if full therapeutic measures are continued to be pursued. In the interim, consider colloidal support of blood pressure to limit possible effect on pulmonary edema. Time Spent With Patient Time: Total time managing care of this patient today ____ minutes.
[2022-11-21 13:05] LABS: INTERNATIONAL NORM RATIO 1.8 (0.9-1.1); Prothrombin Time 20.7 SEC (10.0-13.1)
[2022-11-21 13:08] LABS: PTT Heparin Drip 31.1 SEC (53-77.9)
[2022-11-21] MEDS: Albumin Human 25 % 100 ML IV ×2 (13:40→17:44)
--- NOTE | 2022-11-21 13:46 | PM.IMHP ---
History of Present Illness Date of Service: 11/21/22 Chief Complaint: Shortness of breath This is an 89-year-old gentleman resident of [facility], with past medical history significant for aortic valve stenosis, persistent atrial fibrillation,, history of complete heart block status post pacemaker placement, history of dementia, history of CHF with reduced EF 25-30%, history of hypertension, and restrictive lung disease [facility] due to shortness of breath and hypoxia with finger oximetry 83% on 6 L Patient is unable to provide meaningful history earlier he was somnolent later became more awake alert denied chest pain, no shortness of breath he is not aware why he is in the hospital, history obtained from nursing facility and ED physician, workup in the emergency room showed BNP 1 965, troponin greater than 36,000, normal WBC, hematocrit and platelet count, stable electrolytes and renal function, EKG shows normal sinus rhythm with paced rhythm, no acute ischemic changes, patient recent echocardiogram showed EF 30% with aortic stenosis severeity difficult to assess on this study, chest x-ray showed no acute cardiopulmonary finding, CTA chest showed no acute PE showed trace right pleural effusion and mild right basilar opacity suggestive of atelectasis, and mild reflux of contrast into hepatic veins suggestive of elevated right heart pressures, patient treated in the emergency room with 1 dose of IV Lasix and now being admitted for further management of non ST elevation AK and acute congestive heart failure. Review of Systems Review of Systems: Unable to obtain review of systems due to medical condition, patient is somnolent and has dementia. [facility] Medical History Alcohol dependence in remission Aortic valve stenosis Atrial fibrillation Cardiac pacemaker in situ Chronic kidney disease COPD (chronic obstructive pulmonary disease) CVA (cerebral vascular accident) Dementia Depression Heart failure with reduced ejection fraction Hypertension Hypoventilation Pulmonary embolism Pulmonary hypertension Restrictive lung disease Social History Household Members: Other Household Members Other:: [facility] Housing: [facility] Do you presently have visiting nurse or other home services: No Alcohol intake: never Patient Tobacco Use Status: Never used Tobacco Smoked in Last 30 Days: No Second Hand Smoke Exposure: Yes Use of substances other than those prescribed or required for medical reasons: No Advance Directives: Yes Advance Directives on File: Yes Advance Directives Date on File: 10/23/22 service: No Current occupational status: retired Meds Allergies Allergy/AdvReac Type Severity Reaction Status Date / Time Unable to Assess Allergy Unverified 10/23/22 19:35 Active Medications: Current Medications Acetaminophen (Acetaminophen 325 Mg Tablet) 650 mg PO Q6H PRN PRN Reason: Pain, Mild (Pain Scale 1-3) Al Hydroxide/Mg Hydroxide (Magnesium Hydrox/Alum Hydrox 30 Ml Oral.Susp) 15 ml PO Q6H PRN PRN Reason: GI UPSET Atorvastatin Calcium (Atorvastatin Calcium 40 Mg Tablet) 40 mg PO DAILY [facility] Bisacodyl (Bisacodyl 10 Mg Supp.Rect) 10 mg [place] DAILY PRN PRN Reason: Constipation Famotidine (Famotidine 20 Mg Tablet) 20 mg PO DAILY [facility] Heparin Sodium (Porcine) (Heparin Sodium,Porcine 5,000 Unit/Ml Vial) 3,700 unit 40 unit/kg (3700 unit) IVPUSH PROTOCOL BOLUS PRN; Protocol PRN Reason: 40 unit/kg - Heparin Protocol Heparin Sodium (Porcine) (Heparin Sodium,Porcine 5,000 Unit/Ml Vial) 7,300 unit 80 unit/kg (7300 unit) IVPUSH PROTOCOL BOLUS PRN; Protocol PRN Reason: 80 unit/kg - Heparin Protocol Albumin Human (Kedbumin 25 %) 100 mls @ 100 mls/hr IV Q6H [facility] Stop: 11/22/22 07:29 Last Admin: 11/21/22 13:40 Dose: 100 mls/hr Heparin Sodium/Sodium Chloride (Heparin Sodium,Porcine/1/2ns) 25,000 unit in 250 mls @ 0 mls/hr IVCONT .Q0M [facility]; Protocol Furosemide 200 mg/ Sodium (Chloride) 100 mls @ 2.5 mls/hr IVCONT .Q24H [facility] Loperamide HCl (Loperamide Hcl 2 Mg Capsule) 2 mg PO Q4H PRN PRN Reason: Diarrhea Ondansetron HCl (Ondansetron Hcl 4 Mg/2 Ml Vial) 4 mg IVPUSH Q8H PRN PRN Reason: Nausea and Vomiting Sodium Chloride (0.9 % Sodium Chloride Flush 3 Ml Syringe) 3 ml IVFLUSH QSHIFT [facility] Home Medications Medication Instructions Recorded Confirmed Last Taken Type apixaban 5 mg tablet (Eliquis) 5 mg PO BID 10/23/22 11/21/22 Unknown History bisacodyl 10 mg rectal suppository 10 mg [place] DAILY PRN Constipation 10/23/22 11/21/22 Unknown History famotidine 20 mg tablet 20 mg PO DAILY 10/23/22 11/21/22 Unknown History guaifenesin 100 mg/5 mL oral syrup 200 mg PO Q4H PRN Cough 10/23/22 11/21/22 Unknown History loperamide 2 mg capsule 2 mg PO Q4H PRN Diarrhea 10/23/22 11/21/22 Unknown History magnesium hydroxide 400 mg/5 mL 30 ml PO DAILY PRN Constipation 10/23/22 11/21/22 Unknown History oral suspension (Milk of Magnesia) sacubitril 24 mg-valsartan 26 mg 1 tab PO BID 10/23/22 11/21/22 Unknown History tablet (Entresto) aluminum-mag hydroxide-simethicone 15 ml PO Q6H PRN GI UPSET 10/24/22 11/21/22 Unknown History 200 mg-200 mg-20 mg/5 mL oral susp furosemide 20 mg tablet 40 mg PO BID 10/24/22 11/21/22 Unknown History naloxone 4 mg/actuation nasal 4 mg intranasal Q3M PRN Opiate 10/24/22 11/21/22 Unknown History spray (Narcan) Reversal sodium phosphates 19 gram-7 118 ml [place] DAILY PRN Constipation 10/24/22 11/21/22 Unknown History gram/118 mL enema (Fleet Enema) sodium chloride 0.65 % nasal spray 2 spray intranasal Q4H 11/21/22 11/21/22 Unknown History aerosol (Saline Nasal) Physical Exam Vital Signs and Narrative: Vital Signs: Last Vital Signs Temp 98.2 F 11/21/22 01:55 Pulse 78 11/21/22 09:05 Resp 25 H 11/21/22 11:16 BP 87/67 L 11/21/22 09:05 Pulse Ox 90 L 11/21/22 09:05 O2 Del Method Nasal Cannula 11/21/22 09:05 O2 Flow Rate 5 11/21/22 09:05 Oxygen Flow Rate 6 11/21/22 02:39 BMI result Body Mass Index 38.7 Const: Other: General: initially somnolent later awake, in no acute distress. Anicteric sclera Neck supple ,no JVD. CVS regular rate rhythm, Respiratory lungs diminished breath sound,no respiratory distress, no wheeze, basilar crackles Gastrointestinal abdomen soft, nontender, bowel sounds audible, no guarding , no rigidity. Extremities no edema. Neuro moving all 4 extremity, speech clear. skin no rash Results Labs 11/21/22 02:40 11/21/22 02:40 Labs: Laboratory Results - last 24 hr 11/21/22 11/21/22 11/21/22 02:40 02:40 02:40 MCV 94.3 MCH 28.6 MCHC 30.4 L RDW 13.7 Plt Count 203 MPV 9.8 Immature Gran % (Auto) 0.4 Neut % (Auto) 74.8 H Lymph % (Auto) 9.4 L [place] % (Auto) 13.6 H Eos % (Auto) 1.6 Baso % (Auto) 0.2 Lymph # (Auto) 0.9 L [place] # (Auto) 1.3 H Eos # (Auto) 0.2 Baso # (Auto) 0.0 Abs Immat Gran (auto) 0.04 H Absolute Neuts (auto) 7.2 Absolute Nucleated RBC 0.000 Nucleated RBC % (auto) 0.0 PT INR aPTT Heparin Protocol VBG pH VBG pCO2 VBG pO2 VBG HCO3 VBG O2 Saturation VBG Base Excess Anion Gap 14 Estim Creat Clear Calc 42.5 Estimated GFR 56 Random Glucose 100 Calcium 8.7 Magnesium 2.5 Total Bilirubin 1.3 H AST 69 H ALT 23 Alkaline Phosphatase 69 Troponin I High Sens B-Natriuretic Peptide 1965 H Total Protein 6.7 Albumin 3.4 L COVID-19 ([facility]) COVID-19 Clin Com 11/21/22 11/21/22 11/21/22 02:40 03:15 03:16 MCV MCH MCHC RDW Plt Count MPV Immature Gran % (Auto) Neut % (Auto) Lymph % (Auto) [place] % (Auto) Eos % (Auto) Baso % (Auto) Lymph # (Auto) [place] # (Auto) Eos # (Auto) Baso # (Auto) Abs Immat Gran (auto) Absolute Neuts (auto) Absolute Nucleated RBC Nucleated RBC % (auto) PT INR aPTT Heparin Protocol VBG pH 7.46 H VBG pCO2 53 VBG pO2 64 VBG HCO3 38 H VBG O2 Saturation 92.0 VBG Base Excess 12.7 Anion Gap Estim Creat Clear Calc Estimated GFR Random Glucose Calcium Magnesium Total Bilirubin AST ALT Alkaline Phosphatase Troponin I High Sens > 3600.0 H* D B-Natriuretic Peptide Total Protein Albumin COVID-19 ([facility]) Negative COVID-19 Clin Com See Note 11/21/22 11/21/22 11/21/22 03:24 11:47 12:49 MCV MCH MCHC RDW Plt Count MPV Immature Gran % (Auto) Neut % (Auto) Lymph % (Auto) [place] % (Auto) Eos % (Auto) Baso % (Auto) Lymph # (Auto) [place] # (Auto) Eos # (Auto) Baso # (Auto) Abs Immat Gran (auto) Absolute Neuts (auto) Absolute Nucleated RBC Nucleated RBC % (auto) PT 24.9 H 20.7 H INR 2.1 H 1.8 H aPTT Heparin Protocol 31.1 L VBG pH VBG pCO2 VBG pO2 VBG HCO3 VBG O2 Saturation VBG Base Excess Anion Gap Estim Creat Clear Calc Estimated GFR Random Glucose Calcium Magnesium Total Bilirubin AST ALT Alkaline Phosphatase Troponin I High Sens > 3600.0 H* B-Natriuretic Peptide Total Protein Albumin COVID-19 ([facility]) COVID-19 Clin Com Imaging Radiologist's Impressions: Impressions Chest X-Ray 11/21/22 02:12 IMPRESSION: No acute cardiopulmonary findings. Chest X-Ray 11/21/22 05:32 IMPRESSION: Right IJ central line tip in the region of the distal SVC. Chest CTA 11/21/22 05:53 IMPRESSION: 1. Inadequate evaluation of some of the segmental and subsegmental vessels bilaterally due to extensive respiratory motion artifact. Otherwise, no pulmonary embolus identified. 2. Trace right pleural effusion. Mild right basilar opacity is more suggestive of atelectasis. 3. Mild reflux of contrast into the hepatic veins, which can be seen with elevated right heart pressures. VTE: negative. Assessment and Plan (1) Aortic valve stenosis: Status: Acute (2) Acute on chronic systolic heart failure: Status: Acute (3) Acute respiratory failure with hypoxia: Status: Acute (4) Non-ST elevated myocardial infarction (non-STEMI): Status: Acute Plan 82-year-old male just admitted and discharged from [facility] on 10/27/2022 for shortness of breath with history of aortic stenosis with severe cardiomyopathy LVEF 25-30% history of complete heart block status post pacemaker AFib on Eliquis, CVA, depression, pulmonary hypertension [facility] from [facility] for increased shortness of breath saturating 83% on 6 L. #? acute hypoxic respiratory failure likely due to acute heart failure with low EF -? chest x-ray and CTA chest negative for PE and pneumonia, less likely, COPD exac -? patient initially treated with CPAP subsequently transition to high-flow oxygen -? will place on IV Lasix drip repeat echocardiogram, follow BMP and BNP while being diuresed. Case discussed with Cardiology -? monitor respiratory status # non ST-elevation AK troponin greater than 36,000 x2, patient denies chest pain Placed on IV heparin added Lipitor, EKG showed no ischemia but difficult to assess due to underlying paced rhythm Follow echo # hypotension resolved will give IV albumin, Entresto and Coreg discontinued follow blood pressure closely #? history of persistent atrial fibrillation Hold Eliquis since placed on IV heparin for non ST-elevation AK and hold Coreg due to heart failure # recent history of PE was on Eliquis # history of CVA on statins # unspecified dementia ?DVT prophylaxis:? On IV heparin drip Code status DNR DNI, called patient's son Kulwinder Craft at [phone] and informed him about patient's guarded condition,he agress with current medical managment. GI prophylaxis on Pepcid In my clinical judgment patient will require 2 night inpatient stay for management of acute hypoxic respiratory failure and non ST elevation AK requiring IV heparin and IV Lasix drip Time Spent With Patient Time: Total time managing care of this patient today ____ minutes. Quality Stroke Does the patient have a stroke diagnosis?: No VTE Prior VTE?: No VTE Risk Level:: Medical - moderate - high VTE Device Contraindication: Treatment Not Indicated VTE Drug Contraindication: N/A - Med Ordered
[2022-11-21] MEDS: Furosemide 200 MG in 0.9 % Sodium Chloride 80 ML IVCONT (13:51)
[2022-11-21] MEDS: Heparin Sodium,Porcine/1/2NS 25,000 UNIT/250 ML IV.SOLN 10 UNIT IVCONT (13:56)
[2022-11-21] MEDS: Atorvastatin Calcium 40 MG TABLET PO (14:01)
--- NOTE | 2022-11-21 15:56 | MHC.EDTECH ---
THIS PCT ASSUMED CARE OF PT AT 1500 ,VITALS SIGN TAKEN ,PT PULLED OUT HIS TRIPPLE LUMIN IV ,CARE GIVEN ,BEDDING CHANGE .
--- NOTE | 2022-11-21 16:00 | PC.NURSE ---
Pt pulled out triple lumen central line. Pressure applied to site. Pt cleaned and changed, MD aware. Plan for another central line to be placed.
[2022-11-21] MEDS: 0.9 % Sodium Chloride Flush 3 ML SYRINGE IVFLUSH (17:39)
--- NOTE | 2022-11-21 17:45 | PC.NURSE ---
Pt sent up from the ED at this time with two point restraints; no proper documentation came up with pt. Pt calm and cooperative during time of arrival on the unit; restraints released. Pt had a triple lumen to the right IJ that was placed in the ED, pt came to unit with Heparin running at 10ml/hr and Lasix running at 5mg/hr (2.5mls). Around 0 Radiology called asking if the central line was placed to confirm placement. Drips paused immediately, then changed to peripheral IVs.
[2022-11-21 18:48] LABS: Appearance Urine Clear; Color Urine Yellow; Glucose Urine UA Negative (Negative); Leukocyte Esterase Urine Small (1+) (Negative); Nitrite Urine Negative (Negative); UMIC TRIGGER UACC YES; Urine Blood Large (3+) (Negative); Urine Ketones Negative (Negative); Urine Protein Trace mg/dL (Neg-Trace)
[2022-11-21 19:03] LABS: Bacteria Urine None Seen (None Seen); RBC Urine >20 /HPF (0-2); Squamous Epithelial Cell Urine 0-2 /HPF (0-2); UACC Culture Trigger YES; WBC Urine 0-5 /HPF (0-5)
[2022-11-21 20:18] LABS: PTT Heparin Drip 105.1 SEC (53-77.9)
[2022-11-22] VITALS: PULSE 90; RESP 20; TEMP 35.9; O2SAT 97
[2022-11-22] MEDS: Albumin Human 25 % 100 ML IV (00:07)
[2022-11-22] MEDS: 0.9 % Sodium Chloride Flush 3 ML SYRINGE IVFLUSH (00:08)
[2022-11-22 01:26] LABS: Glucose, Whole Blood 163 mg/dL (60-115)
--- NOTE | 2022-11-22 01:42 | PM.EVENT ---
Event Note Date of Service: 11/22/22 Event Note: A rapid response was called on this patient around 01:30, Patient was noted to be obtunded, more lethargic, on checking vitals, unable to obtain BP due to very low blood pressure, multiple attempts were made with automatic and manual blood pressure check. Given patient's admission for likely CHF, and his status is do not resuscitate/DNI, I spoke to the son Kulwinder who is agreeable to make patient comfort measures only at this time as prognosis is very poor and he would like his father to be mostly comfortable. Patient has been made comfort measures only Time Spent With Patient Time: Total time managing care of this patient today ____ minutes.
[2022-11-22 01:45] VITALS: PULSE 59; RESP 24; TEMP 36.3; O2SAT 99
[2022-11-22] MEDS: Morphine Sulfate 4 MG/ML CARTRIDGE IVPUSH (01:49)
[2022-11-22] MEDS: Scopolamine 1.5 MG PATCH.TD.3 TRANSDERMA (01:54)
--- NOTE | 2022-11-22 02:54 | PC.NURSE ---
Pt unresponsive to verbal and tactile stimuli, unable to obtain a BP, temp 97.4, rapid response called . MD @ bedside and notified son, pt placed on comfort measures only. PRN morphine admin. At 0211 pt noted to have no spontaneous respiration, MD called and pronounce . Son notified, per son he will call [facility] in fall. Organ donor called, pt accepted as a donor. Post mortem care provided.
--- NOTE | 2022-12-08 07:16 | P.DN_ITS ---
Discharge Sum: Prov Provider Primary care physician: HELDER SIMS Consults: 11/21/22 08:26 Consult to Cardiology Routine Consulting Provider: Misha Dorado Reason for consultation: nstemi Has provider been notified: No 11/21/22 12:11 Consult to Critical Care Stat Consulting Provider: Mukesh Andres Reason for consultation: hypotension/hypoxia Has provider been notified: No Discharge Sum: Diag Contributing Factors (1) Aortic valve stenosis: (2) Acute on chronic systolic heart failure: (3) Acute respiratory failure with hypoxia: (4) Non-ST elevated myocardial infarction (non-STEMI): Discharge Sum: Summary Date and Time Date of admission: 11/21/22 11:40 Summary Details: Date of Service: 11/21/22 Chief Complaint: Shortness of breath This is an 89-year-old gentleman resident of [facility], with past medical history significant for aortic valve stenosis, persistent atrial fibrillation,, history of complete heart block status post pacemaker placement, history of dementia, history of CHF with reduced EF 25-30%, history of hypertension, and restrictive lung disease patient was sent from senior living due to shortness of breath and hypoxia with finger oximetry 83% on 6 L Patient is unable to provide meaningful history earlier he was somnolent later became more awake alert denied chest pain, no shortness of breath he is not aware why he is in the hospital, history obtained from nursing facility and ED physician, workup in the emergency room showed BNP 1 965, troponin greater than 36,000, normal WBC, hematocrit and platelet count, stable electrolytes and renal function, EKG shows normal sinus rhythm with paced rhythm, no acute ischemic changes, patient recent echocardiogram showed EF 30% with aortic stenosis severeity difficult to assess on this study, chest x-ray showed no acute cardiopulmonary finding, CTA chest showed no acute PE showed trace right pleural effusion and mild right basilar opacity suggestive of atelectasis, and mild reflux of contrast into hepatic veins suggestive of elevated right heart pressures, patient treated in the emergency room with 1 dose of IV Lasix and now being admitted for further management of non ST elevation TN and acute congestive heart failure. hospital course 82-year-old male just admitted [place] [facility] [place] for shortness of breath with history of aortic stenosis with severe cardiomyopathy LVEF 25-30% history of complete heart block status post pacemaker AFib on Eliquis, CVA, depression, pulmonary hypertension came from senior living for increased shortness of breath saturating 83% on 6 L and admitted to medical floor with a diagnosis of:. #? acute hypoxic respiratory failure likely due to acute heart failure with low EF # non ST-elevation TN troponin greater than 36,000 x2, # hypotension #? history of persistent atrial fibrillation ? ? # recent history of PE #? history of CVA # unspecified dementia at 01:30 rapid response was called patient was noted to be obtunded, lethargic BP was unobtainable, case was discussed with patient's son child's who agreed for comfort measures only due to poor prognosis. pt. at 2:11am patient noted to have no pulse, no respirations, pupils fixed and dilated. Additional Data Attending physician: Tamiko Bonilla MD
== END 2022-11-22 02:11 | disposition expired ==
LOC: HO.ED 11:10 → HO.EDOVER 11:41 → HO.S3 13:41 → HO.EDOVER 14:06 → HO.IMC 14:40
PROVIDERS: Internal Medicine; Admitting Provider Hospitalist; Emergency Provider Emergency Medicine; PCP Emergency Medicine; Visit Provider Hospitalist
DX: I11.0 Hypertensive heart disease with heart failure (principal); I50.23 Acute on chronic systolic (congestive) heart failure; I21.4 Non-ST elevation (NSTEMI) myocardial infarction; J96.21 Acute and chronic respiratory failure with hypoxia; I44.2 Atrioventricular block, complete; J98.11 Atelectasis; Z66 Do not resuscitate; F10.21 Alcohol dependence, in remission; I95.9 Hypotension, unspecified; I35.0 Nonrheumatic aortic (valve) stenosis; I27.20 Pulmonary hypertension, unspecified; Z51.5 Encounter for palliative care; J44.9 Chronic obstructive pulmonary disease, unspecified; F03.90 Unspecified dementia, unspecified severity, without behavioral disturbance, psychotic disturbance, mood disturbance, and anxiety; Z20.822 Contact with and (suspected) exposure to COVID-19; Z86.73 Personal history of transient ischemic attack (TIA), and cerebral infarction without residual deficits; Z86.711 Personal history of pulmonary embolism; Z95.0 Presence of cardiac pacemaker; Z79.01 Long term (current) use of anticoagulants; Z79.899 Other long term (current) drug therapy
CPT/HCPCS: 36415; 71045; 71275; 80053; 81001; 82803; 82947; 83735; 83880; 84484; 85025; 85610; 85730; 87086; 87635; 93005; 99285; J1643; J1940; J2270; P9047; Q9967